=== PATIENT | female | born 1940 | race Hispanic/Latino ===

== ENCOUNTER 2017-04-09 08:10 | Inpatient (IN) | payer MEDICARE ==
[2017-04-09 08:10] VITALS: BMI 30.7
[2017-04-09] MEDS ORDERED: Morphine 4 mg/ml ISec IVP STA (08:25)
[2017-04-09] MEDS ORDERED: Nitroglycerin 2% Ointment Foilpak UD TOP STA (08:38)
[2017-04-09] MEDS ORDERED: Metoprolol 1 mg/ml Inj IVP STA (08:47)
--- NOTE | 2017-04-09 08:49 | ED PDOC ---
Arrival/HPI - General Chief Complaint: Chest Pain Time Seen by Provider: 04/09/17 08:24 Historian: Patient - History of Present Illness Narrative History of Present Illness (Text): 04/09/17 08:25 A 77 year old female, whose past medical history includes bypass surgery and CHF , presents to the emergency department complaining of left sided chest tightness radiating to the left arm that began at 0600 this morning. Patient notes pain is associated with shortness of breath and nausea but denies any vomiting, abdominal pain, fever, chills, cough, or any other complaints at this time. PMD: Dr. Ronquillo Mobile Home Laborer: Dr. Teague Time/Duration: 1-3 hours Symptom Onset: Sudden Symptom Course: Unchanged Quality: Tightness Activities at Onset: Rest Context: Home Past Medical History - Provider Review Nursing Documentation Reviewed: Yes - Infectious Disease Hx of Infectious Diseases: None - Tetanus Immunization Tetanus Immunization: Unknown - Reproductive Menopause: Yes - Past Medical History Past Medical History: No Previous - Cardiac Hx Congestive Heart Failure: Yes Hx Hypertension: Yes - Pulmonary Hx Respiratory Disorders: No - Neurological Hx Transient Ischemic Attacks (TIA): Yes - HEENT Other/Comment: SITKA, B/L HEARING AIDES - Renal Hx Renal Disorder: No - Endocrine/Metabolic Hx Diabetes Mellitus Type 2: Yes - Hematological/Oncological Hx Shingles: Yes - Integumentary Hx Dermatological Disorder: Yes (SKIN CA LEFT CHEEK, LEFT ARM) - Musculoskeletal/Rheumatological Hx Falls: Yes Hx Unsteady Gait: Yes Other/Comment: USES CANE - Gastrointestinal Hx Gastrointestinal Disorders: Yes (GI ULCER) Hx Gall Bladder Disease: Yes (GB REMOVAL (20+YRS AGO)) - Genitourinary/Gynecological Hx Genitourinary Disorders: Yes (KIDNEY STONE REMOVAL (20+YRS AGO)) - Psychiatric Hx Emotional Abuse: No Hx Physical Abuse: No Hx Substance Use: No - Surgical History Hx Cholecystectomy: Yes - Anesthesia Hx Anesthesia: No Hx Anesthesia Reactions: No Hx Malignant Hyperthermia: No - Suicidal Assessment Feels Threatened In Home Enviroment: No Family/Social History - Physician Review Nursing Documentation Reviewed: Yes Family/Social History: Unknown Family HX Smoking Status: Never Smoked Hx Alcohol Use: No Hx Substance Use: No Hx Substance Use Treatment: No Allergies/Home Meds Allergies/Adverse Reactions: Allergies clopidogrel bisulfate [From Plavix] Allergy (Verified 03/31/16 09:29) RASH Penicillins Allergy (Verified 03/31/16 09:29) RASH zolpidem tartrate [From Ambien] Allergy (Verified 03/31/16 09:29) RASH gabapentin Adverse Reaction (Verified 04/02/16 05:03) ITCHING and rash itching over entire body with erythma Home Medications: Home Meds Medication Instructions Recorded Confirmed diltiaZEM CD [Cardizem CD] 240 mg PO DAILY 10/09/13 04/09/17 Insulin Detemir [Levemir] 22 unit SC HS 02/04/14 01/16/17 Allopurinol [Zyloprim] 300 mg PO DAILY 03/31/16 04/09/17 Aspirin [Ecotrin] 81 mg PO DAILY 03/31/16 04/09/17 Furosemide [Lasix] 40 mg PO DAILY 03/31/16 04/09/17 Metoprolol Tartrate [Lopressor] 50 mg PO BID 03/31/16 04/09/17 Simvastatin [Zocor] 20 mg PO DAILY 03/31/16 04/09/17 metFORMIN [glucOPHAGE] 500 mg PO BID 03/31/16 04/09/17 Famotidine [Pepcid] 1 tab PO DAILY 04/09/17 04/09/17 Metoclopramide [Reglan] 1 tab PO DAILY 04/09/17 04/09/17 Pantoprazole [Protonix EC Tab] 1 tab PO DAILY 04/09/17 04/09/17 Review of Systems - Review of Systems Constitutional: absent: Fevers ENT: absent: Sore Throat Respiratory: SOB. absent: Cough Cardiovascular: Chest Pain (radiating to the left arm) Gastrointestinal: Nausea. absent: Abdominal Pain Genitourinary Female: absent: Hematuria Musculoskeletal: absent: Back Pain, Neck Pain Skin: absent: Rash Neurological: absent: Headache Endocrine: absent: Polyuria Psychiatric: absent: Depression Physical Exam Vital Signs Reviewed: Yes Vital Signs Temp Pulse Resp BP Pulse Ox 04/09/17 11:11 147/80 04/09/17 11:03 129 H 17 147/80 96 04/09/17 09:23 126 H 16 154/71 H 99 04/09/17 08:10 98.1 F 144 H 24 164/86 H 100 Temperature: Afebrile Blood Pressure: Hypertensive Pulse: Tachycardic Respiratory Rate: Normal Appearance: Positive for: Well-Appearing, Non-Toxic, Comfortable Pain Distress: None Mental Status: Positive for: Alert and Oriented X 3 - Systems Exam Head: Present: Atraumatic, Normocephalic Pupils: Present: PERRL Extroacular Muscles: Present: EOMI Conjunctiva: Present: Normal Mouth: Present: Moist Mucous Membranes Neck: Present: Normal Range of Motion Respiratory/Chest: Present: Clear to Auscultation, Good Air Exchange. No: Respiratory Distress, Accessory Muscle Use Cardiovascular: Present: Normal S1, S2, Tachycardic. No: Murmurs Abdomen: Present: Normal Bowel Sounds. No: Tenderness, Distention, Peritoneal Signs Back: Present: Normal Inspection Upper Extremity: Present: Normal Inspection. No: Cyanosis, Edema Lower Extremity: Present: Normal Inspection. No: Edema Neurological: Present: GCS=15, CN II-XII Intact, Speech Normal Skin: Present: Warm, Dry, Normal Color. No: Rashes Psychiatric: Present: Alert, Oriented x 3, Normal Insight, Normal Concentration Medical Decision Making ED Course and Treatment: 04/09/17 08:25 Impression: A 77 year old female with chest pain. Patient PMD is currently at bedside with the patient and patient's lap runner is aware. Differential Diagnosis include but are not limited to: ACS vs. SVT vs. New onset atrial fibrillation Plan: -- EKG -- Chest X-ray -- Labs -- Aspirin, Morphine and Nitrostate SL tab -- Reassess and disposition Prior Visits: Notes and results from previous visits were reviewed. The patient last presented to the emergency department on 01/14/17 for evaluation of left heel pain radiating the the left calf. Progress Notes: EKG: Ordered, reviewed, and independently interpreted the EKG. Rate : 140 BPM Rhythm : Sinus tachycardia Interpretation : ischemic ST depression in the inferior lateral leads EKG shows ?elevation in AVR with depression in II and depressions in v5/v6 consistent with inferolateral ischemia 04/09/17 08:48 Aspirin, morphine, SL nitro and nitro paste ordered. Some improvement of pain. Spoke to lap runner Dr. Teague who reviewed EKG. Agrees that presentation is consistent with ischemia. Recommends 5mg lopressor iv and heparin bolus and drip if stable hgb 04/09/17 08:58 On reevaluation, patient states her chest pain has resolved. 04/09/17 09:23 Hgb resulted and WNL. Patient currently refusing heparin. She is pending trop 04/09/17 09:43 After lopressor, repeat ekg shows irregularly irregular rhythm at 101 bpm. consistent with afib. Ischemic changes improvement after rate control 04/09/17 10:05 Chest X-ray: Creator : Mundo Gibson MD COMPARISON: Comparison chest 11/12/2016 FINDINGS: LUNGS: No focal consolidation. The interstitial markings are slightly increased and coarsened which may in part be due to semi-erect patient positioning however the possibility of mild venous congestion or developing interstitial infiltrates to be excluded with followup radiographs. PLEURA: No significant pleural effusion identified, no pneumothorax apparent. CARDIOVASCULAR: Sternotomy wires again noted. Heart remains enlarged. Aorta is ectatic and uncoiled with calcification of the aortic knob. OSSEOUS STRUCTURES: No significant abnormalities. VISUALIZED UPPER ABDOMEN: Normal. OTHER FINDINGS: None. IMPRESSION: No focal consolidation. The interstitial markings are slightly increased and coarsened which may in part be due to semi-erect patient positioning however the possibility of mild venous congestion or developing interstitial infiltrates to be excluded with followup radiographs. 04/09/17 10:33 Dr. Teague at bedside. Cardizem ordered. Trop not resulted. Patient agrees to heparin now. Heparin bolus and drop started. Dr. Lares and Dr. Teague in agreement. 04/09/17 11:57 Trop resulted and elevated consistent with NSTEMI - Lab Interpretations Lab Results: 04/09/17 08:40 04/09/17 10:30 Lab Results 04/09/17 10:30: Sodium 139, Potassium 4.8, Chloride 102, Carbon Dioxide 27, Anion Gap 15, BUN 14, Creatinine 0.7, Est GFR ( Amer) > 60, Est GFR (Non- Af Amer) > 60, Random Glucose 220 H, Calcium 9.6, Phosphorus 3.3, Magnesium 1.6 L, Total Bilirubin 0.5, AST 21, ALT 28, Alkaline Phosphatase 80, Total Creatine Kinase 43, Troponin I 0.15 H* D, NT-Pro-B Natriuret Pep 1490 H, Total Protein 6.5, Albumin 3.8, Globulin 2.7, Albumin/Globulin Ratio 1.4 04/09/17 08:40: PT 10.6, INR 0.98, APTT 28.5 04/09/17 08:40: WBC 10.6 D, RBC 3.86, Hgb 12.1, Hct 35.6 L, MCV 92.2, MCH 31.3 , MCHC 34.0, RDW 14.4, Plt Count 345, MPV 10.1, Gran % 59.4, Lymph % (Auto) 27.1 , Ballard % (Auto) 7.7 H, Eos % (Auto) 5.1 H, Baso % (Auto) 0.7, Gran # 6.33, Lymph # 2.9, Ballard # 0.8 H, Eos # 0.5, Baso # 0.07 I have reviewed the lab results: Yes - RAD Interpretation Radiology Orders: 04/09/17 08:29 CHEST PORTABLE [RAD] Stat - Medication Orders Current Medication Orders: Allopurinol (Zyloprim) 300 mg PO DAILY [facility] Aspirin (Ecotrin) 81 mg PO DAILY [facility] Diltiazem HCl (Cardizem) 60 mg PO TID [facility] Furosemide (Lasix) 40 mg PO DAILY [facility] Last Admin: 04/09/17 11:11 Dose: 40 mg Heparin Sodium/Sodium Chloride (Heparin 88751 Units/250ml 1/2 Normal Saline) 25 ,000 units in 250 mls @ 10.451 mls/hr IV .[id number] [facility]; 12 UNITS/KG/HR PRN Reason: Protocol Last Admin: 04/09/17 10:58 Dose: 10.451 mls/hr Insulin Detemir (Levemir) 20 unit SC HS [facility] Insulin Human Regular (Humulin R Low) 0 units SC ACHS [facility] PRN Reason: Protocol Magnesium Oxide (Mag-Ox) 400 mg PO BID [facility] Metoprolol Tartrate (Lopressor) 50 mg PO BID [facility] Pantoprazole Sodium (Protonix Inj) 40 mg IVP DAILY [facility] Ticagrelor (Brilinta) 90 mg PO BID [facility] Discontinued Medications Acetaminophen (Tylenol 325mg Tab) 650 mg PO STAT [facility] Stop: 04/09/17 10:50 Last Admin: 04/09/17 11:11 Dose: 650 mg Aspirin (Aspirin Chewable) 324 mg PO STAT STA Stop: 04/09/17 08:26 Last Admin: 04/09/17 08:40 Dose: 324 mg Diltiazem HCl (Cardizem) 60 mg PO STAT STA Stop: 04/09/17 10:19 Last Admin: 04/09/17 10:45 Dose: 60 mg Heparin Sodium (Porcine) (Heparin) 4,400 units 50 units/kg (4400 units) IV STAT [facility] PRN Reason: Protocol Stop: 04/09/17 10:30 Last Admin: 04/09/17 10:50 Dose: 4,400 units Metoprolol Tartrate (Lopressor) 5 mg IVP STAT STA Stop: 04/09/17 08:48 Last Admin: 04/09/17 09:17 Dose: 5 mg Morphine Sulfate (Morphine) 4 mg IVP STAT STA Stop: 04/09/17 08:26 Last Admin: 04/09/17 08:40 Dose: 4 mg Nitroglycerin (Nitrostat Sl Tab) 0.3 mg SL STAT STA Stop: 04/09/17 08:27 Last Admin: 04/09/17 08:40 Dose: 0.3 mg Nitroglycerin (Nitro-Bid 2% Oint) 1 ea TOP STAT STA Stop: 04/09/17 08:39 Last Admin: 04/09/17 08:45 Dose: 1 ea - Scribe Statement The provider has reviewed the documentation as recorded by the Vinnieibnelson Mackenzie Provider Scribe Attestation: All medical record entries made by the Scribe were at my direction and personally dictated by me. I have reviewed the chart and agree that the record accurately reflects my personal performance of the history, physical exam, medical decision making, and the department course for this patient. I have also personally directed, reviewed, and agree with the discharge instructions and disposition. Disposition/Present on Arrival - Present on Arrival Any Indicators Present on Arrival: No History of DVT/PE: No History of Uncontrolled Diabetes: No Urinary Catheter: No History of Decub. Ulcer: No History Surgical Site Infection Following: None - Disposition Have Diagnosis and Disposition been Completed?: Yes Diagnosis: NSTEMI (non-ST elevated myocardial infarction), Chest pain, New onset atrial fibrillation Disposition: HOSPITALIZED Disposition Time: 08:49 Patient Plan: Admission Patient Problems: Current Active Problems Problem Status Onset Chest pain Acute NSTEMI (non-ST elevated myocardial infarction) Acute New onset atrial fibrillation Acute Condition: FAIR
[2017-04-09 08:52] LABS: ADD MANUAL DIFF? NO
[2017-04-09 09:00] LABS: BASO # 0.07 K/mm3 (0.0-2.0); BASO % 0.7 % (0.0-3.0); EOS # 0.5 (0.0-0.7); EOS % 5.1 % (1.5-5.0); GRAN # 6.33 (1.4-6.5); GRAN % 59.4 % (50.0-68.0); HEMATOCRIT 35.6 % (36.0-48.0); LYMPH # 2.9 (1.2-3.4); LYMPH % 27.1 % (22.0-35.0); MEAN CELL VOLUME 92.2 fL (80.0-105.0); MEAN CORPUSCULAR HEMOGLOBIN 31.3 pg (25.0-35.0); MEAN PLATELET VOLUME 10.1 fl (7.0-11.0); MONO # 0.8 (0.1-0.6); MONO % 7.7 % (1.0-6.0); PLATELET COUNT 345 10^3/uL (120.0-450.0); RED CELL DISTRIBUTION WIDTH 14.4 % (11.5-14.5); WHITE BLOOD COUNT 10.6 10^3/ul (4.5-11.0)
[2017-04-09 09:09] LABS: INR 0.98 (0.93-1.08); PARTIAL THROMBOPLASTIN TIME 28.5 Seconds (23.7-30.8)
--- NOTE | 2017-04-09 10:01 | RAD ---
HISTORY: chest pain COMPARISON: Comparison chest 11/12/2016 FINDINGS: LUNGS: No focal consolidation. The interstitial markings are slightly increased and coarsened which may in part be due to semi-erect patient positioning however the possibility of mild venous congestion or developing interstitial infiltrates to be excluded with followup radiographs. PLEURA: No significant pleural effusion identified, no pneumothorax apparent. CARDIOVASCULAR: Sternotomy wires again noted. Heart remains enlarged. Aorta is ectatic and uncoiled with calcification of the aortic knob. OSSEOUS STRUCTURES: No significant abnormalities. VISUALIZED UPPER ABDOMEN: Normal. OTHER FINDINGS: None. IMPRESSION: No focal consolidation. The interstitial markings are slightly increased and coarsened which may in part be due to semi-erect patient positioning however the possibility of mild venous congestion or developing interstitial infiltrates to be excluded with followup radiographs.
[2017-04-09] MEDS ORDERED: Heparin25000 units/250ml 1/2NS 25,000 UNITS/250 ML BAG IV SCH (10:30)
[2017-04-09 10:48] LABS: ALB/GLOB RATIO 1.4 (1.1-1.8); ALKALINE PHOSPHATASE 80 U/L (38-133); ALT/SGPT 28 U/L (7-56); AST/SGOT 21 U/L (15-39); BILIRUBIN,TOTAL 0.5 mg/dL (0.2-1.3); BLOOD UREA NITROGEN 14 mg/dL (7-21); CALCIUM 9.6 mg/dL (8.4-10.5); CARBON DIOXIDE 27 mmol/L (21-33); CHLORIDE 102 mmol/L (98-107); GFR AFRICAN-AMERICAN > 60; GLUCOSE,RANDOM 220 mg/dL (70-110); MAGNESIUM 1.6 mg/dL (1.7-2.2); PHOSPHOROUS 3.3 mg/dL (2.5-4.5); POTASSIUM 4.8 mmol/L (3.6-5.0); SODIUM 139 mmol/L (132-148); TOTAL PROTEIN 6.5 g/dL (5.8-8.3)
[2017-04-09 11:22] LABS: TROPONIN I 0.15 ng/mL
--- NOTE | 2017-04-09 11:44 | HP ---
The patient is seen in the Emergency Room with chest pain. She is a 77-year- old white female. She has a history of coronary artery disease. HISTORY OF PRESENT ILLNESS: The patient is seen in the Emergency Room with chest pain that is radiating to the left arm. The patient's pain is intractable , and she also has anxiety associated with the pain and shortness of breath with palpitations. PAST MEDICAL HISTORY: Diabetes mellitus, degenerative arthritis, lumbar neuritis. The patient has bursitis of both knees, history of renal colic, renal calculi. PAST SURGICAL HISTORY: She has had coronary artery bypass surgery. ALLERGIES: SHE IS ALLERGIC TO PLAVIX. THE PATIENT IS ALLERGIC TO PENICILLIN, ALLERGIC TO AMBIEN AND GABAPENTIN. PHYSICAL EXAMINATION: GENERAL: The patient is in pain. She was given morphine for the pain at the time of evaluation. VITAL SIGNS: The pulse is irregular 140 per minute. Rhythm is atrial fibrillation. The patient's blood pressure is 150/71. Respirations are 16. O2 sat is 99% on room air. HEAD: Normocephalic. NECK: JVP is flat. Carotid pulses are present. Thyroid is not enlarged. HEART: Atrial fibrillation with rapid ventricular response. ABDOMEN: Soft. Liver and spleen not palpable. LUNGS: The trachea is central. Breath sounds are vesicular. No adventitious sounds are heard clinically. CENTRAL NERVOUS SYSTEM: The cranial nerves are intact. She has no motor or sensory disability. 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 She has neuropathic involvement of the hand, as well as the legs. MEDICATION LIST: Consists of Cardizem. The patient is on Cardizem 60 mg p.o. 3 times a day. The patient is on aspirin. The patient will be placed on insulin coverage, metoprolol 50 mg b.i.d. The patient will get pantoprazole 40 mg daily, allopurinol 300 mg daily, aspirin 325 mg daily. The patient is treated with heparin drip and morphine for pain. LABORATORY DATA: The blood work done in the Emergency Room, the hemoglobin is 12.1. The patient's platelet count is 345,000. The patient is also placed on (ticagrelor) Brilinta 90 mg p.o. b.i.d. for anticoagulation as antiplatelet agent because the patient has acute coronary syndrome, rule out IN and she is allergic to Plavix.. ADMITTING DIAGNOSES: Chest pain, rule out acute myocardial infarction, unstable angina, atrial fibrillation with rapid ventricular rate, diabetes mellitus, hypertension, degenerative arthritis. PROGNOSIS: Is guarded. CONDITION: Unstable at this time. The patient is going to be treated in telemetry. Dr. Teague, the dental director, will be called in to see the patient, and we will follow up. Pola Ronquillo MD cc: [id number] TT: 04/09/2017 11:43:42 jn MTDD
[2017-04-09] MEDS: Insulin Reg-LOW-Coverage SC SCH ×2 (13:33→17:30)
--- NOTE | 2017-04-09 14:17 | CON ---
DATE: 04/09/2017 REASON FOR CONSULTATION: Chest pain radiating to the left arm and shoulder, history of coronary daniele ry disease, CABG. BRIEF CLINICAL HISTORY: This is a 77-year-old female with a past medical history significant for cor onary artery bypass surgery 03/15/2009, three vessels - PILLAI to LAD, saphenous venous graft Y to diag onal 1 and circumflex - by Dr. Motta at [facility]. Repeat catheterization in 2015: Patent graft. Came with left-sided chest pain radiating ____, radiating to the left arm. Als o complains of shortness of breath, nausea feeling. Denies any fever or chills. PAST MEDICAL HISTORY: Significant for hypertension, diabetes, hyperlipidemia; coronary artery bypass surgery 03/15/2009, three vessel as mentioned - PILLAI to LAD, saphenous vein graft to the diagonal, s aphenous graft to the circumflex - by Dr. Motta at [facility]; history of COPD. PREVIOUS CARDIAC WORKUP: As follows: The patient had a cardiac catheterization 04/04/2016 that show s patent graft when patient presented with acute dld-AI-qycjedk myocardial infarction, coronary arter y disease. It revealed 2-vessel disease including left main and circumflex, but patent PILLAI to LAD, but distal LAD diffusely diseased, not suitable for PCI; patent Y graft to diagonal 1 and circumflex; mild disease to very large dominant RCA, preserved LV function, ejection fraction 50-60%, EDP was in the range 14-18. Medical treatment recommended. The patient had echocardiography done on 04/02/2016 that revealed ejection fraction 50%, hypokinesis with apical anterior wall, mild to moderate mitral regurgitation, mild tricuspid regurgitation, RV sy stolic pressure at 32, trace pulmonary insufficiency. PAST SURGICAL HISTORY: Significant for coronary artery bypass as mentioned 03/15/2009 at [facility] where the patient underwent PILLAI to LAD, saphenous graft Y to diagonal 1 and circumfl ex. SOCIAL HISTORY: Denies smoking. Denies any history of alcohol abuse. CURRENT MEDICATIONS: The patient is taking at home metformin, Glucophage, Cardizem, simvastatin, met oprolol, insulin, aspirin, allopurinol. ALLERGIES: PENICILLIN, PLAVIX, RASH AND ITCHING WITH THE PLAVIX WITH AMBIEN ____. She gets very confused. REVIEW OF SYSTEMS: As per HPI. PHYSICAL EXAMINATION: VITAL SIGNS: Temperature afebrile, heart rate 126, blood pressure 154/71. HEENT: PERRLA. Extraocular muscles intact. NECK: Supple. No carotid bruits. No thyromegaly. CHEST: Clear to auscultation. HEART: S1, S2 regular. ABDOMEN: Soft. EXTREMITIES: Clubbing and cyanosis negative. BLOOD WORKUP: WBC 10.6, hemoglobin 12.____, hematocrit 35.6, platelet count 356. SMA-7 pending. EK G shows sinus tachycardia with significant ST-T changes. IMPRESSION: Acute coronary syndrome, unstable angina, history of chronic obstructive pulmonary disea se, diabetes, obesity, hypertension, hyperlipidemia. Will start aspirin. Will give the beta amalia . Further recommendation depending on hospital course. Possibly patient may need cardiac catheteriz ation. Discussed it with the patient. Will proceed for cardiac cath when the blood work and all the labs are available. Will follow with you. The patient has allergy to Plavix, gets rash. We will s vaishali Foley. Will follow with you. Possible cath in the a.m. Vega Teague MD cc: [id number] TT: 04/09/2017 11:13:13 Confirmation # [id number] Dictation # [id number] verónica
[2017-04-09] MEDS ORDERED: Insulin Regular 1 UNITS/0.01 ML ML ONE (17:26)
[2017-04-09] MEDS: Magnesium Oxide 400 mg Tab UD PO SCH (17:36)
--- NOTE | 2017-04-09 18:44 | CON ---
DATE: 04/09/2017 ADDENDUM SERVICE: Cardiology. REASON FOR CONSULTATION: Addendum to the initial consult dictated this morning. Initial EKG was sen t to me in the text. Appears sinus tachycardia, looked carefully. The heart looks like AFib, flutter with heart rate 140. 5 mg of IV Lopressor given. The patient clearly shows atrial flutter w ith variable block, so we will continue heparin, but significant ST-T changes noted. As of now, the blood work is not available, so we will wait for the troponin and if the troponin remains positive, then we will consider cardiac catheterization. Discussed with Dr. Ronquillo. Discussed with the nicole cervantes. Discussed with patient's daughter. We will keep n.p.o. after 12:00 midnight for possible car diac catheterization tomorrow. Further recommendation upon the blood workup availability and hospita l course. Thank you, Dr. Ronquillo, for providing the opportunity in taking care of this patient. Vega Teague MD cc: [id number] TT: 04/09/2017 18:43:56 Confirmation # [id number] Dictation # [id number] emmanuel
[2017-04-09] MEDS ORDERED: Alum-Mag Hydrox-Simethicone Susp (30 mL) PO PRN (20:38)
[2017-04-09 20:49] LABS: TROPONIN I 1.1 ng/mL
[2017-04-09] MEDS: Insulin Detemir 100 units/ml Vial (Levemir) SC SCH (22:05)
--- NOTE | 2017-04-09 22:23 | CARD ---
APPROVED REPORT EKG Measurement Heart [id number] <Conclusion> Atrial flutter with variable conduction and rapid ventricular response ST & T wave abnormality, consider lateral ischemia or digitalis effect Abnormal ECG
--- NOTE | 2017-04-09 22:25 | CARD ---
APPROVED REPORT EKG Measurement Heart [id number] <Conclusion> Atrial flutter with variable conduction and with rapid ventricular response ST & T wave abnormality, consider lateral ischemia or digitalis effect Abnormal ECG
--- NOTE | 2017-04-09 22:27 | CARD ---
APPROVED REPORT EKG Measurement Heart [id number] [id number] <Conclusion> ? Sinus tachycardia Marked ST abnormality, possible inferolateral subendocardial injury Abnormal ECG
--- NOTE | 2017-04-09 22:29 | CARD ---
APPROVED REPORT EKG Measurement Heart [id number] <Conclusion> Sinus tachycardia Marked ST abnormality, possible inferolateral subendocardial injury Abnormal ECG
[2017-04-09] MEDS ORDERED: Oxycodone/Acetaminophen 5/325 mg Tab PO ONE (23:40)
[2017-04-10] MEDS: Insulin Reg-LOW-Coverage SC SCH ×5 (00:11→22:00)
[2017-04-10] MEDS ORDERED: Metoprolol 1 mg/ml Inj IVP STA (00:43)
[2017-04-10] MEDS ORDERED: Nitroglycerin 2% Ointment Foilpak UD TOP STA ×2 (01:20)
--- NOTE | 2017-04-10 01:27 | CP.PCM.PN ---
Subjective - Date & Time of Evaluation Date of Evaluation: 04/10/17 Time of Evaluation: 01:21 - Subjective Subjective: I was called to inform me that heart rate was in 130's -140's when lopressor 5 mg IV was ordered. Little after that I was told that patient had heaviness in chest, nausea. He has NSTEMI and is for cardiac catheterization in the morning. An EKG and troponin level as well as BMP, Mag,PHOS were ordered. I evaluated patient at bed side.Heart rate on monitor now is 108/min , after lopressor 5 mg IV. He states that he had heaviness in across upper chest , not anymore.It lasted for about 20 minutes. Has no other complaints now. This 77 year old white male was admitted left sided chest pain radiating to left arm , nausea, sob , NSTEMI. Has PMH of HTN,DM, HLD, ACS,Unstable angina, COPD, Obesity. EKG that was done now shows sinus tachycardia, PACs', ST- T changes similar to previous EKG. Objective - Vital Signs/Intake and Output Vital Signs (last 24 hours): Temp Pulse Resp BP Pulse Ox 98.2 F 139 H 19 138/84 100 04/09/17 20:00 04/10/17 00:51 04/09/17 20:00 04/10/17 00:51 04/09/17 17:14 - Medications Medications: Current Medications Acetaminophen (Tylenol 325mg Tab) 650 mg PO Q6H PRN PRN Reason: Pain, moderate (4-7) Last Admin: 04/09/17 21:38 Dose: 650 mg Al Hydrox/Mg Hydrox/Simethicone (Maalox Plus 30 Ml) 30 ml PO Q6 PRN PRN Reason: Indigestion / Heartburn Last Admin: 04/09/17 21:13 Dose: 30 ml Allopurinol (Zyloprim) 300 mg PO DAILY [facility] Aspirin (Ecotrin) 81 mg PO DAILY [facility] Diltiazem HCl (Cardizem) 60 mg PO TID [facility] Last Admin: 04/09/17 17:31 Dose: 60 mg Furosemide (Lasix) 40 mg PO DAILY [facility] Last Admin: 04/09/17 11:11 Dose: 40 mg Insulin Detemir (Levemir) 20 unit SC [facility] Last Admin: 04/09/17 22:05 Dose: 20 unit Insulin Human Regular (Humulin R Low) 0 units SC ACHS KASIA PRN Reason: Protocol Last Admin: 04/10/17 00:11 Dose: Not Given Magnesium Oxide (Mag-Ox) 400 mg PO BID [facility] Last Admin: 04/09/17 17:36 Dose: 400 mg Metoprolol Tartrate (Lopressor) 50 mg PO BID [facility] Last Admin: 04/09/17 17:31 Dose: 50 mg Nitroglycerin (Nitro-Bid 2% Oint) 1 ea TOP STAT STA Stop: 04/10/17 01:21 Ondansetron HCl (Zofran Inj) 4 mg IVP Q4H PRN PRN Reason: Nausea/Vomiting Last Admin: 04/10/17 01:04 Dose: 4 mg Pantoprazole Sodium (Protonix Inj) 40 mg IVP DAILY [facility] Ticagrelor (Brilinta) 90 mg PO BID [facility] Last Admin: 04/09/17 17:31 Dose: 90 mg - Labs Labs: PT 10.6 Seconds (9.9-11.8) 04/09/17 08:40 INR 0.98 (0.93-1.08) 04/09/17 08:40 APTT 33.5 Seconds (23.7-30.8) H 04/09/17 20:18 - Constitutional Appears: Well, No Acute Distress - Head Exam Head Exam: ATRAUMATIC, NORMAL INSPECTION, NORMOCEPHALIC - Eye Exam Eye Exam: Normal appearance - ENT Exam ENT Exam: Normal External Ear Exam - Neck Exam Neck Exam: Normal Inspection - Respiratory Exam Respiratory Exam: Clear to Ausculation Bilateral, NORMAL BREATHING PATTERN. absent: Rales, Wheezes, Respiratory Distress, Stridor - Cardiovascular Exam Cardiovascular Exam: Tachycardia, REGULAR RHYTHM. absent: JVD Additional comments: Chest wall surgical scar of CABG present. - GI/Abdominal Exam GI & Abdominal Exam: absent: Distended - Rectal Exam Rectal Exam: Deferred - Extremities Exam Extremities Exam: Normal Inspection - Back Exam Back Exam: NORMAL INSPECTION - Neurological Exam Neurological Exam: Alert, Oriented x3 - Psychiatric Exam Psychiatric exam: Normal Affect, Normal Mood - Skin Skin Exam: Normal Color Assessment and Plan - Assessment and Plan (Free Text) Assessment: Sinus tachycardia. Heaviness in chest . Nausea. NSTEM for cardiac cath in AM. HTN. DM. CAD. HLD. COPD. Plan: Lopressor 5 mg IV was given. EKG. Troponin. BMP, Magnesium, phosphorus level stat. Nitropaste 1 " topically stat. Will discuss with Dr.Asif MCCARTY.
[2017-04-10 01:33] LABS: BLOOD UREA NITROGEN 18 mg/dL (7-21); CALCIUM 9.6 mg/dL (8.4-10.5); CARBON DIOXIDE 29 mmol/L (21-33); CHLORIDE 99 mmol/L (98-107); GFR AFRICAN-AMERICAN > 60; GLUCOSE,RANDOM 211 mg/dL (70-110); MAGNESIUM 1.8 mg/dL (1.7-2.2); POTASSIUM 4.4 mmol/L (3.6-5.0); SODIUM 137 mmol/L (132-148)
[2017-04-10 01:47] LABS: TROPONIN I 0.65 ng/mL
--- NOTE | 2017-04-10 07:23 | PN ---
DATE: 04/10/2017 The patient is in the [facility] in [place]. She is in room 269, bed 2. The patient's condition: She was admitted with chest pain yesterday which was extreme, looked like severe unstable angina while she was in the Emergency Room; however, the question of rule out [place] was considered. Today, the patient is not complaining of chest pain as much, but she has nausea. She has weakness and insomnia. PHYSICAL EXAMINATION: VITAL SIGNS: Today, the pulse is 76, blood pressure 162/67, patient's respirations are 20, temperature 98.4. LUNGS: Clinically clear. HEART: Sinus rhythm. The patient was in atrial fibrillation yesterday. The patient's rhythm was sinus prior to the patient's episode while in the Emergency Room yesterday and the rate was very rapid. The patient was treated there for atrial fibrillation. There are no murmurs. ABDOMEN: Soft, obesity present. CENTRAL NERVOUS SYSTEM: The patient is conscious, rational, oriented. She has some difficulty hearing also. LABORATORY WORK: Done in the hospital yesterday, the hemoglobin 12.1. The patient's chemistry: The troponin level was 0.15, 1.1 and 0.65. The patient's blood sugar was 211. The patient's liver enzymes, SGOT are within normal limits. Lactate dehydrogenase 427 and the patient's EKG shows ischemic changes. Chest x-ray is clinically clear. On the patient's evaluation by the cardiologists, the patient is scheduled for possible cardiac cath and further management. Her overall condition is guarded. The condition currently is acute. MEDICATION LIST: The patient is on Brilinta 90 mg b.i.d. The patient is on Cardizem 60 mg 3 times a day, aspirin 81 mg daily, insulin coverage for diabetes , Lasix 40 mg daily. The patient is on metoprolol 50 mg b.i.d., Maalox for agitation and heartburn. The patient is on magnesium oxide, pantoprazole, Zofran for nausea, and allopurinol for gout. Diet is heart healthy diet. We will follow up. Pola Ronquillo MD cc: [phone] TT: 04/10/2017 07:22:50 Confirmation # [id number] Dictation # [id number] tn MTDD
[2017-04-10] MEDS ORDERED: Lidocaine 2% Inj (20ml) ONE (08:04)
[2017-04-10] MEDS ORDERED: Iodixanol 320 MG/ML 200 ML BOTTLE IV ONE (08:05)
[2017-04-10] MEDS ORDERED: Nitroglycerin 50mg in D5W 50 MG/250 ML BOTTLE IV ONE (08:05)
[2017-04-10] MEDS ORDERED: Midazolam 2 MG/2 ML VIAL ONE (08:39)
[2017-04-10] MEDS ORDERED: Eptifibatide 20 mg/10mL Inj IVP ONE (09:54)
[2017-04-10] MEDS ORDERED: Sodium Chloride 0.9% 1,000 ML IV SCH (10:45)
[2017-04-10] MEDS: Magnesium Oxide 400 mg Tab UD PO SCH ×2 (11:47→17:52)
--- NOTE | 2017-04-10 11:56 | PN ---
DATE: 04/10/2017 REASON FOR CONSULTATION AND FOLLOWUP: Chest pain radiating to the left arm, acute coronary syndrome, unstable angina, history of coronary artery disease, CABG, status post PTCA of proximal RCA, heavily calcified artery. BRIEF CLINICAL HISTORY: A 77-year-old female with a past medical history significant for coronary ar emy bypass 03/15/2009, 3 vessels, PILLAI to LAD, saphenous graft Y to diagonal [address] Motta at [facility] Repeat catheterization 03/2016, medical treatment, patent gra ft. Yesterday, admitted with unstable angina, severe chest pain, goes from right to left. Later on, troponin turns out to be positive . EKG showed significant ST depression in inferolateral lead s. The patient underwent this morning cardiac catheterization and that revealed left main 99% stenos is, proximal LAD 90% stenosis, mid LAD 100% stenosis, proximal circ 100% occluded, RCA proximal 90% s tenosis, heavily calcified artery, PILLAI patent to LAD, distal LAD diffusely diseased and occluded, sa phenous vein graft to the diagonal and saphenous graft to the obtuse marginal 1 Y graft. LV gram philly ws ejection fraction 50%, EDP was in the range of 12. In view of above, PTCA of [place] RCA was done. It was very complex. Initial dilatation was done using yuniel wire and 2.5 balloon, then upgraded t o 3.5 balloon and then subsequently 4 mm drug-eluting stent 18 mm in length was deployed with reducti on of stenosis from 90% to 0. ADAMA 3 flow noted and good diastolic noted. The patient tolerat ed the procedure well and returned to the floor in stable condition. PHYSICAL EXAMINATION: VITAL SIGNS: Temperature afebrile, heart rate , blood pressure 162/67. HEENT: PERRLA. Extraocular muscles intact. NECK: Supple. No carotid bruits. No thyromegaly. CHEST: Clear to auscultation. HEART: S1, S2 regular. ABDOMEN: Soft. EXTREMITIES: Clubbing, cyanosis negative. BLOOD WORKUP: WBC 10.6, hemoglobin 12.1, hematocrit 35.6, platelet count 356. Chemistry shows sodiu m , potassium 4.4, chloride 99, carbon dioxide , anion gap of 13, BUN 18, creatinine 0.8. Troponin peaked to 1.1 and today is 0.69. BNP 1490. IMPRESSION: Unstable angina, status post coronary artery bypass surgery in 2008, status post today a ngioplasty of [place] right coronary artery with reduction of stenosis from 90% to 0, diabetes, hypert ension, hyperlipidemia, obesity. RECOMMENDATION: THE PATIENT IS ALLERGIC TO PLAVIX. We started Brilinta 90 mg twice, baby aspirin an d possible discharge tomorrow. We will continue hydrate and further recommendation depending on hosp ital course. We will inform Dr. Ronquillo, update the patient's condition. Vega Teague MD cc: [id number] TT: 04/10/2017 11:56:12 Confirmation # [id number] Dictation # [id number] en
[2017-04-10 13:19] LABS: ADD MANUAL DIFF? NO
[2017-04-10 13:23] LABS: BASO # 0.06 K/mm3 (0.0-2.0); BASO % 0.6 % (0.0-3.0); EOS # 0.4 (0.0-0.7); EOS % 3.9 % (1.5-5.0); GRAN # 5.73 (1.4-6.5); GRAN % 60.1 % (50.0-68.0); HEMATOCRIT 35.2 % (36.0-48.0); LYMPH # 2.7 (1.2-3.4); LYMPH % 28.3 % (22.0-35.0); MEAN CELL VOLUME 92.4 fL (80.0-105.0); MEAN CORPUSCULAR HEMOGLOBIN 31.2 pg (25.0-35.0); MEAN CORPUSCULAR HGB CONC 33.8 g/dl (31.0-37.0); MEAN PLATELET VOLUME 9.4 fl (7.0-11.0); MONO # 0.7 (0.1-0.6); MONO % 7.1 % (1.0-6.0); PLATELET COUNT 357 10^3/uL (120.0-450.0); RED CELL DISTRIBUTION WIDTH 14.4 % (11.5-14.5); WHITE BLOOD COUNT 9.5 10^3/ul (4.5-11.0)
[2017-04-10 13:33] LABS: BLOOD UREA NITROGEN 16 mg/dL (7-21); CALCIUM 9.5 mg/dL (8.4-10.5); CARBON DIOXIDE 28 mmol/L (21-33); CHLORIDE 102 mmol/L (98-107); GFR AFRICAN-AMERICAN > 60; GLUCOSE,RANDOM 206 mg/dL (70-110); POTASSIUM 4.4 mmol/L (3.6-5.0); SODIUM 137 mmol/L (132-148)
[2017-04-10] MEDS ORDERED: Bacitracin 500 Units/gm Oint Foilpak UD ONE (15:30)
[2017-04-10] MEDS ORDERED: Oxycodone/Acetaminophen 5/325 mg Tab PO ONE (16:01)
--- NOTE | 2017-04-10 16:11 | CARD ---
APPROVED REPORT EKG Measurement Heart [id number] <Conclusion> Normal sinus rhythm Nonspecific ST and T wave abnormality Prolonged QT Abnormal ECG
--- NOTE | 2017-04-10 16:21 | CARD ---
APPROVED REPORT EKG Measurement Heart [id number] <Conclusion> Atrial flutter with variable conduction and rapid ventricular response consider lateral ischemia or digitalis effect Abnormal ECG
--- NOTE | 2017-04-10 16:26 | CARD ---
APPROVED REPORT Procedure(s) performed: Left Heart Catheterization PILLAI Angiogram SVG Angiogram PTCA with Stenting of Proximal RCA with MATT HISTORY The patient is a 77 year-old female with a history of : previous NV (> 7 days), previous CHF, peripheral vascular disease, diabetes mellitus with insulin treatment , chronic lung disease, previous diagnostic cath, hypertension , previous CABG (The CABG date was 03/15/2009), dyslipidemia , Adsmitted with unstable Angina ( severe chest pain across chest) A fib with RVR and Dynamic ST T changes. INDICATION The indication(s) include : unstable angina , non-STEMI . CASE TECHNIQUE The patient was brought urgently to the Cardiac Catheterization Laboratory in a fasting state and was prepped and draped in a sterile manner. The left wrist was infiltrated with 2% Lidocaine subcutaneous anesthesia. A 6 Fr Glidesheath (Radial) sheath was inserted into the left radial artery without difficulty. Coronary angiography was performed using coronary diagnostic catheters. The left coronary system was accessed and visualized with a Diagnostic ,5 Fr JL 3.5 catheter. The right coronary system was accessed and visualized with a Diagnostic ,5 Fr 3DRC catheter. The left ventricle was accessed and visualized with a Diagnostic ,5 Fr JR 4 catheter. The left internal mammary artery was accessed and visualized with a 6 Fr LOCO catheter. The saphenous vein graft was accessed and visualized with a Diagnostic ,6 Fr AR 1 catheter. Left ventricular/Aortic Valve gradient assessed on pullback. Left ventriculogram was performed in LYONS projection. Closure device was deployed with a Fr TR Band (Regular) without any complications. The patient tolerated the procedure well and there were no complications associated with the procedure. Vessel Analysis The patient's coronary anatomy is right dominant. The left main coronary artery is a medium size vessel with diffuse calcification noted throughout this vessel and with significant stenosis. There is a 99% stenosis in the distal segment. The left anterior descending artery is a medium size vessel with diffuse calcification noted throughout this vessel and without significant stenosis. There is a 100% stenosis in the mid segment. proximal LAD has 90% stenosis. The first diagonal branch is a small size vessel with diffuse calcification noted throughout this vessel and without significant stenosis. The circumflex artery is a medium size vessel with diffuse calcification noted throughout this vessel and with significant stenosis. There is a 100% stenosis in the ostial segment. The right coronary artery is a large size vessel with diffuse calcification noted throughout this vessel and with significant stenosis. There is a 80-90% stenosis in the proximal segment. The right posterior descending artery is a medium size vessel with diffuse calcification noted throughout this vessel and without significant stenosis. The right posterolateral branch is a medium size vessel with diffuse calcification noted throughout this vessel and without significant stenosis. The left internal mammary artery to the mid left anterior descending artery segment is patent but Distal LAD is severely Diseased, not Suitable for PCI. The saphenous vein graft to the first diagonal branch segment and Sequential to first obtuse marginal branch segment is patent, Y graft. . Left Ventricle The left ventricle is borderline enlarged in size with normal contractility. There was no cardiomyopathy. The left ventricular ejection fraction is estimated to be 55%. The left ventricular end diastolic pressure is 12-14 mmHg. There was no gradient across the aortic valve upon pullback. PCI Technique Lesion Anticoagulation was achieved with Heparin. Percutaneous coronary intervention was performed on the proximal right coronary artery. The lesion stenosis prior to intervention was 80-90% with ADAMA 2 flow. A 6 Fr 3DRC Guide Catheter was used to engage the ostium. BALLOON DILATION A Balloon catheter 2.5 x 10 mm Sprinter RX was inserted and inflated up to 18.00atm for 34seconds. Up sized to 3.5.10 balloon and Inflatted to 12 atms for 20 seconds STENT DEPLOYMENT A drug-eluting stent 4.0 x 18 mm Resolute MATT was inserted and inflated up to 18.00atm for 21seconds. Final angiography reveals 0 % stenosis with ADAMA 3 flow. Conclusion [place] Triple Vessel Diz, Left Main, LAD, Cx,and RCA. Patent PILLAI to LAD but LAD Is Diffusely Diz. not suitable for PCI. Patent Y graft to OM1 and D1 New High grade Stenosis In Proximal RCA, culprit for Symptoms Preserved LV Fx., EF-55%. EDP-12-14 with respiratory variation Successful PTCA with MATT in Proximal RCA 4.0/18 Resolute. Recommendations Cardiac Rehabilitation ReferralDaily ASA with Plavix for at least one year Aggressive Medical TherapyCardiac Risk Reduction Program Weight Loss Reduction Program CC DR. Lares/ [place].
[2017-04-10] MEDS ORDERED: Oxycodone/Acetaminophen 5/325 mg Tab PO PRN (17:12)
[2017-04-10 18:41] VITALS: RESP 20
[2017-04-10] MEDS: Insulin Detemir 100 units/ml Vial (Levemir) SC SCH (21:51)
[2017-04-11 00:07] VITALS: O2SAT 96
[2017-04-11 06:55] LABS: ADD MANUAL DIFF? NO
[2017-04-11 07:21] LABS: BASO # 0.03 K/mm3 (0.0-2.0); BASO % 0.2 % (0.0-3.0); EOS # 0.7 (0.0-0.7); EOS % 5.4 % (1.5-5.0); GRAN # 8.47 (1.4-6.5); GRAN % 68.8 % (50.0-68.0); HEMATOCRIT 36.9 % (36.0-48.0); LYMPH # 2.5 (1.2-3.4); LYMPH % 20.2 % (22.0-35.0); MEAN CELL VOLUME 93.7 fL (80.0-105.0); MEAN CORPUSCULAR HEMOGLOBIN 31.2 pg (25.0-35.0); MEAN CORPUSCULAR HGB CONC 33.3 g/dl (31.0-37.0); MEAN PLATELET VOLUME 9.8 fl (7.0-11.0); MONO # 0.7 (0.1-0.6); MONO % 5.4 % (1.0-6.0); PLATELET COUNT 409 10^3/uL (120.0-450.0); RED CELL DISTRIBUTION WIDTH 14.6 % (11.5-14.5); WHITE BLOOD COUNT 12.3 10^3/ul (4.5-11.0)
[2017-04-11 07:28] LABS: ALB/GLOB RATIO 1.2 (1.1-1.8); ALKALINE PHOSPHATASE 79 U/L (38-133); ALT/SGPT 23 U/L (7-56); AST/SGOT 41 U/L (15-39); BILIRUBIN,TOTAL 0.8 mg/dL (0.2-1.3); BLOOD UREA NITROGEN 16 mg/dL (7-21); CALCIUM 9.3 mg/dL (8.4-10.5); CARBON DIOXIDE 26 mmol/L (21-33); CHLORIDE 102 mmol/L (98-107); CHOLESTEROL 167 mg/dL (130-200); GFR AFRICAN-AMERICAN > 60; GLUCOSE,RANDOM 162 mg/dL (70-110); MAGNESIUM 2.2 mg/dL (1.7-2.2); PHOSPHOROUS 3.8 mg/dL (2.5-4.5); POTASSIUM 4.4 mmol/L (3.6-5.0); SODIUM 139 mmol/L (132-148); TOTAL PROTEIN 6.9 g/dL (5.8-8.3)
[2017-04-11] MEDS: Insulin Reg-LOW-Coverage SC SCH ×2 (08:00→12:11)
--- NOTE | 2017-04-11 08:45 | PN ---
DATE: 04/11/2017 The patient is in the [facility] in [place], room 273, bed 2 at this time. The patient was admitted with unstable angina. The patient has past history of coronary artery disease, diabetes mellitus, hypertension. PHYSICAL EXAMINATION: VITAL SIGNS: This morning, patient's pulse is 70, blood pressure 164/57, respirations are 20. GENERAL: The patient is comfortable. CVS: +S1, S2 LUNGS: clear ABD: soft, NTND, obese ALLERGIES: SHE HAD ALLERGIC REACTION TO BRILINTA. THE PATIENT HAS HAD ALLERGIC REACTION TO PLAVIX IN THE PAST. The patient did have angioplasty yesterday. She is scheduled to be discharged this morning. Dr. Teague, the window/distribution clerk, has recommended the patient will get Effient 10 mg as a starting dose this morning and if the patient tolerates that medicine, the patient will be discharged on it. All the medications will be continued at home. The patient is on hydralazine p.r.n. for elevated blood pressure, but patient takes Cardizem 240 mg daily at home. The patient will take aspirin 81 mg daily. The patient is on insulin coverage for diabetes. The patient is on Lasix 40 mg daily, metoprolol 50 mg b.i.d. The patient is on magnesium oxide. The patient takes pantoprazole 40 mg daily for reflux esophagitis. The patient is on Percocet for pain. She has severe osteoarthritis too. DISCHARGE DIAGNOSES: Unstable angina, status post angioplasty and stenting. The patient has diabetes mellitus, hypertension, degenerative arthritis. The patient's medications will be continued as an outpatient. She is advised that she has to take an anticoagulation, antiplatelet agent such as Effient, Plavix or Brilinta, but at this point, she has to settle for Effient because she is allergic to Plavix and Brillinta. We will continue this management and patient will follow up with the window/distribution clerk after discharge. She will followup in the office in 1 week. Pola Ronquillo MD cc: [phone] TT: 04/11/2017 08:45:05 Confirmation # [id number] Dictation # [id number] en MTDD
[2017-04-11] MEDS: Magnesium Oxide 400 mg Tab UD PO SCH (09:00)
[2017-04-11] MEDS ORDERED: diltiaZEM 240 mg/24 Hours CD Cap PO SCH (10:00)
--- NOTE | 2017-04-11 10:37 | PN ---
DATE: 04/11/2017 REASON FOR CONSULTATION AND FOLLOWUP: Acute coronary syndrome, unstable angina, status post PTCA of RCA. BRIEF CLINICAL HISTORY: A 77-year-old female with a past medical history significant for coronary ar emy bypass surgery 03/15/2009, 3 vessels, PILLAI to LAD, saphenous vein graft Y to diagonal [address] Motta at [facility], admitted with acute coronary syndrome, unstable a ngina and dynamic ST-T changes. The patient underwent a cardiac catheterization and subsequently PTC A of proximal RCA with a drug-eluting stent. The patient is known ALLERGY TO PLAVIX, yesterday start ed Brilinta, but the patient developed rash. So Brilinta is discontinued today and started on Effien t this morning. PHYSICAL EXAMINATION: VITAL SIGNS: Temperature afebrile, heart rate 70, blood pressure 164/64. HEENT: PERRLA. Extraocular muscles intact. NECK: Supple. No carotid bruits. No thyromegaly. CHEST: Clear to auscultation. HEART: S1, S2 regular. ABDOMEN: Soft. EXTREMITIES: Clubbing and cyanosis negative. LABORATORY DATA: Blood workup as follows: WBC 12.3, hemoglobin 12.3, hematocrit 36.9, platelet coun t 409. Chemistry shows sodium ____, potassium 4.4, chloride 102, carbon dioxide 26, anion gap of 15, BUN 16, creatinine 0.8. Triglyceride 322, cholesterol 116, LDL 89, HDL 26. TSH 0.66. IMPRESSION: Acute coronary syndrome and [id number] myocardial infarction, status post percutaneo us transluminal coronary angioplasty of [place] right coronary artery with a drug-eluting stent, sanchez nt left internal mammary artery to left anterior descending, patent graft, saphenous vein graft Y gra ft to diagonal 1 and circumflex; obesity, diabetes, hypertension, hyperlipidemia, ALLERGY TO PLAVIX, ALLERGY TO BRILINTA. RECOMMENDATION: We will start Effient, ambulate. If patient remains stable, possible discharge to y. ____ discuss with Dr. Ronquillo. Thank you, Dr. Ronquillo, for providing the opportunity in taking care of the patient. We will foll ow with you. The patient on admission went into A-fib with rapid ventricular rate. Post-procedure, the patient converted to normal sinus. We will not anticoagulate because it was short lived and the patient converted to normal sinus, possibly secondary to ischemia in RCA area and AV bib branches. Now, the patient is back to normal sinus rhythm. Denies any chest pain, shortness of breath, any pa lpitation. We will follow with you. Vega Teague MD cc: [id number] TT: 04/11/2017 10:37:15 Confirmation # [id number] Dictation # [id number] tn
[2017-04-11 12:06] VITALS: BP 155/60; PULSE 82; TEMP 97.7
--- NOTE | 2017-04-11 18:53 | CARD ---
APPROVED REPORT EKG Measurement Heart [id number] <Conclusion> Normal sinus rhythm Left ventricular hypertrophy with repolarization abnormality Cannot rule out Septal infarct, age undetermined Abnormal ECG
== END 2017-04-11 14:44 | disposition home or self-care (01) | DRG 247 ==
LOC: ED 08:10 → ERH 10:31 → 2RNO 19:39 → 2RSO 04-10 11:00
PROVIDERS: ADMIT Internal Medicine; ATTEND Internal Medicine
PROC: 027034Z Dilation of Coronary Artery, One Artery with Drug-eluting Intraluminal Device, Percutaneous Approach (ICD-10-PCS; principal; 2017-04-10)
PROC: 4A023N7 Measurement of Cardiac Sampling and Pressure, Left Heart, Percutaneous Approach (ICD-10-PCS; 2017-04-10)
PROC: B2081ZZ Plain Radiography of Left Internal Mammary Bypass Graft using Low Osmolar Contrast (ICD-10-PCS; 2017-04-10)
PROC: 3E033PZ Introduction of Platelet Inhibitor into Peripheral Vein, Percutaneous Approach (ICD-10-PCS; 2017-04-10)
DX: I21.4 Non-ST elevation (NSTEMI) myocardial infarction (principal); I48.92 Unspecified atrial flutter; E11.42 Type 2 diabetes mellitus with diabetic polyneuropathy; I11.0 Hypertensive heart disease with heart failure; I50.9 Heart failure, unspecified; I08.1 Rheumatic disorders of both mitral and tricuspid valves; J44.9 Chronic obstructive pulmonary disease, unspecified; I25.110 Atherosclerotic heart disease of native coronary artery with unstable angina pectoris; Z79.4 Long term (current) use of insulin; M54.16 Radiculopathy, lumbar region; M71.562 Other bursitis, not elsewhere classified, left knee; M71.561 Other bursitis, not elsewhere classified, right knee; E78.5 Hyperlipidemia, unspecified; J98.4 Other disorders of lung; M19.90 Unspecified osteoarthritis, unspecified site; I48.91 Unspecified atrial fibrillation; I73.9 Peripheral vascular disease, unspecified; E66.9 Obesity, unspecified; Z68.31 Body mass index [BMI] 31.0-31.9, adult; Z95.1 Presence of aortocoronary bypass graft; Z79.82 Long term (current) use of aspirin; Z88.0 Allergy status to penicillin

== ENCOUNTER 2017-04-24 09:49 | Emergency (ER) | payer MEDICARE ==
[2017-04-24 09:50] VITALS: BMI 30.7
[2017-04-24 09:57] VITALS: TEMP 98.6; O2SAT 96
--- NOTE | 2017-04-24 10:20 | ED PDOC ---
Arrival/HPI - General Chief Complaint: Lower Extremity Problem/Injury Time Seen by Provider: 04/24/17 10:14 Historian: Patient - History of Present Illness Narrative History of Present Illness (Text): 04/24/17 10:17 77yo female with PMHx of CAD, hypertension, Diabetes, neuropathy, gout who present with complaint of left foot pain x a week. States pain is usually with weight bearing. He notes that pain radiates from her plantar foot through the Achilles's tendon up to her calf area. States she took Percocet this morning without relieve. Also notes paresthesia of her anterior foot. Notes that she is on Allopurinol for her gout x years. Denies trauma, any other complaint. Past Medical History - Provider Review Nursing Documentation Reviewed: Yes - Infectious Disease Hx of Infectious Diseases: None - Tetanus Immunization Tetanus Immunization: Unknown - Past Medical History Past Medical History: No Previous - Cardiac Hx Cardiac Disorders: Yes Hx Congestive Heart Failure: Yes Hx Hypertension: Yes - Pulmonary Hx Respiratory Disorders: No - Neurological Hx Neurological Disorder: Yes Hx Transient Ischemic Attacks (TIA): Yes - HEENT Hx HEENT Disorder: No - Renal Hx Renal Disorder: No - Endocrine/Metabolic Hx Endocrine Disorders: Yes Hx Diabetes Mellitus Type 2: Yes Hx Hyperthyroidism: Yes - Hematological/Oncological Hx Blood Disorders: No - Integumentary Hx Dermatological Disorder: Yes Hx Basal Cell Carcinoma: Yes (ca) Hx Squamous Cell Carcinoma: Yes (ca) - Musculoskeletal/Rheumatological Hx Musculoskeletal Disorders: Yes Hx Arthritis: Yes Hx Falls: Yes Hx Unsteady Gait: Yes (cane) - Gastrointestinal Hx Gastrointestinal Disorders: Yes Hx Gall Bladder Disease: Yes Hx Gastrointestinal Ulcer: Yes - Genitourinary/Gynecological Hx Genitourinary Disorders: No - Psychiatric Hx Psychophysiologic Disorder: No Hx Substance Use: No - Surgical History Hx Amputation: Yes (partial BL index finger) Hx Cardiac Catheterization: Yes Hx Hysterectomy: Yes - Anesthesia Hx Anesthesia: Yes - Suicidal Assessment Feels Threatened In Home Enviroment: No Family/Social History - Physician Review Nursing Documentation Reviewed: Yes Family/Social History: Unknown Family HX Smoking Status: Never Smoked Hx Alcohol Use: No Hx Substance Use: No Hx Substance Use Treatment: No Allergies/Home Meds Allergies/Adverse Reactions: Allergies clopidogrel bisulfate [From Plavix] Allergy (Verified 04/24/17 09:52) RASH Penicillins Allergy (Verified 04/24/17 09:52) RASH zolpidem tartrate [From Ambien] Allergy (Verified 04/24/17 09:52) RASH gabapentin Adverse Reaction (Verified 04/24/17 09:52) ITCHING and rash itching over entire body with erythma Home Medications: Home Meds Medication Instructions Recorded Confirmed diltiaZEM CD [Cardizem CD] 240 mg PO DAILY 10/09/13 04/24/17 Insulin Detemir [Levemir] 22 unit SC HS 02/04/14 04/24/17 Allopurinol [Zyloprim] 300 mg PO DAILY 03/31/16 04/24/17 Aspirin [Ecotrin] 81 mg PO DAILY 03/31/16 04/24/17 Furosemide [Lasix] 40 mg PO DAILY 03/31/16 04/24/17 Metoprolol Tartrate [Lopressor] 50 mg PO BID 03/31/16 04/24/17 Simvastatin [Zocor] 20 mg PO DAILY 03/31/16 04/24/17 metFORMIN [glucOPHAGE] 500 mg PO BID 03/31/16 04/24/17 Famotidine [Pepcid] 1 tab PO DAILY 04/09/17 04/24/17 Pantoprazole [Protonix EC Tab] 1 tab PO DAILY 04/09/17 04/24/17 Review of Systems - Physician Review All systems were reviewed & negative as marked: Yes - Review of Systems Constitutional: Normal Eyes: Normal ENT: Normal Respiratory: Normal Cardiovascular: Normal Gastrointestinal: Normal Genitourinary Female: Normal Musculoskeletal: Arthralgias (Left foot pain) Skin: Normal Neurological: Normal Endocrine: Normal Hemo/Lymphatic: Normal Psychiatric: Normal Physical Exam Vital Signs Reviewed: Yes Vital Signs Temp Pulse Resp BP Pulse Ox 04/24/17 11:50 69 18 155/42 H 96 04/24/17 09:53 98.6 F 66 16 167/70 H 96 Temperature: Afebrile Blood Pressure: Normal Pulse: Regular Respiratory Rate: Normal Appearance: Positive for: Well-Appearing, Non-Toxic, Comfortable Pain Distress: None Mental Status: Positive for: Alert and Oriented X 3 - Systems Exam Head: Present: Atraumatic, Normocephalic Pupils: Present: PERRL Extroacular Muscles: Present: EOMI Conjunctiva: Present: Normal Mouth: Present: Moist Mucous Membranes Neck: Present: Normal Range of Motion Respiratory/Chest: Present: Clear to Auscultation, Good Air Exchange. No: Respiratory Distress, Accessory Muscle Use Cardiovascular: Present: Regular Rate and Rhythm, Normal S1, S2. No: Murmurs Abdomen: Present: Normal Bowel Sounds. No: Tenderness, Distention, Peritoneal Signs Back: Present: Normal Inspection Upper Extremity: Present: Normal Inspection. No: Cyanosis, Edema Lower Extremity: Present: Normal Inspection, NORMAL PULSES, Normal ROM, Neurovascularly Intact (Decreased sensaton to b/ ankle/anterior foot). No: Edema, CALF TENDERNESS, Tenderness, Swelling, Erythema, Temperature Abnormalties (Warm to touch) Neurological: Present: GCS=15, CN II-XII Intact, Speech Normal Skin: Present: Warm, Dry, Normal Color. No: Rashes Psychiatric: Present: Alert, Oriented x 3, Normal Insight, Normal Concentration Medical Decision Making ED Course and Treatment: 04/24/17 12:01 PT in ED for left foot pain. She notes pain with weight bearing and ambulation. Her physical exam was bening. Her symptoms most likely secondary to Plantar fasciitis Review of her charts indicates that she was seen here on 01/14/17 for same complaint. Foot xray - Spurring. DJd. No acute fracture Doppler US was negative for DVT. URic acid level is WNL. PT is already on Percocet at home. She sees a Lending Activities Supervisor. All result was DW the pt. She was advised to f/u with a Lending Activities Supervisor. She indicates she that she was given a special shoe once by her Lending Activities Supervisor for the same symptom. She was advised to f/u for possible cortisol injection. Advised TRT ED for any new or worsening symptoms. - Lab Interpretations Lab Results: Lab Results 04/24/17 10:30: Uric Acid 3.9 - RAD Interpretation Radiology Orders: 04/24/17 10:15 FOOT LEFT 3 VIEWS ROUTINE [RAD] Stat 04/24/17 10:16 DUPLEX LOWER EXTRM VEIN BILAT [US] Stat - Medication Orders Current Medication Orders: Discontinued Medications Oxycodone/Acetaminophen (Percocet 5/325 Mg Tab) 1 tab PO STAT STA Stop: 04/24/17 10:40 Last Admin: 04/24/17 11:24 Dose: 1 tab Disposition/Present on Arrival - Present on Arrival Any Indicators Present on Arrival: No History of DVT/PE: No History of Uncontrolled Diabetes: Yes Urinary Catheter: No History of Decub. Ulcer: No History Surgical Site Infection Following: None - Disposition Have Diagnosis and Disposition been Completed?: Yes Diagnosis: Plantar fasciitis of left foot Disposition: HOME/ ROUTINE Disposition Time: 11:50 Patient Plan: Discharge Patient Problems: Current Active Problems Problem Status Onset Plantar fasciitis of left foot Acute Condition: STABLE Discharge Instructions (ExitCare): Plantar Fasciitis (ED) Additional Instructions: Follow up with a Lending Activities Supervisor/PMD Return to ED for any new or worsening symptoms Referrals: Reese Ronquillo MD [Primary Care Provider] - Follow up with primary Charlene Jay DPM [Staff Provider] - Follow up with primary
[2017-04-24] MEDS ORDERED: Oxycodone/Acetaminophen 5/325 mg Tab PO STA (10:39)
--- NOTE | 2017-04-24 11:44 | US ---
HISTORY: Leg pain and swelling. Evaluate for DVT PHYSICIAN(S): Charles Cadena MD. TECHNIQUE: Duplex sonography and color-flow Doppler with graded compression were used to evaluate the deep venous systems of both lower extremities. The exam is limited by body habitus and edema FINDINGS: The visualized deep venous systems of both lower extremities are sonographically normal and compressible. Normal wave forms and augmentation are seen. There is no sonographic evidence for deep venous thrombosis in the visualized segments of both lower extremities. There is a complex 4.6 cm fluid collection in the left popliteal fossa. The popliteal vessels are draped over mass. It does not have the typical appearance of a Parra cyst. If further evaluation is necessary, an MRI can be considered. IMPRESSION: No sonographic evidence for deep venous thrombosis in the visualized segments of both lower extremities. 4.6 cm complex left popliteal fossa cystic mass. If further evaluation is clinically indicated, an MRI can be considered.
[2017-04-24 11:50] VITALS: BP 155/42; PULSE 69; RESP 18
--- NOTE | 2017-04-24 12:31 | RAD ---
PROCEDURE: Left Foot Radiographs. HISTORY: foot pain COMPARISON: None. FINDINGS: BONES: Normal. No fracture. JOINTS: Normal. SOFT TISSUES: Normal. OTHER FINDINGS: None. IMPRESSION: Normal left foot radiographs.
== END 2017-04-24 12:16 | disposition home or self-care (01) ==
LOC: ED 09:49
DX: M72.2 Plantar fascial fibromatosis (principal); I10 Essential (primary) hypertension; E11.9 Type 2 diabetes mellitus without complications

== ENCOUNTER 2017-07-25 08:26 | Observation (INO) | payer MEDICARE ==
[2017-07-25 08:26] VITALS: BMI 30.7
[2017-07-25 08:39] VITALS: RESP 16
[2017-07-25] MEDS ORDERED: Morphine 4 mg/ml ISec IM STA ×2 (09:23→11:28)
[2017-07-25 10:13] LABS: BASO # 0.08 K/mm3 (0.0-2.0); BASO % 0.9 % (0.0-3.0); EOS # 0.4 (0.0-0.7); EOS % 4.2 % (1.5-5.0); GRAN # 5.41 (1.4-6.5); GRAN % 58.7 % (50.0-68.0); HEMATOCRIT 33.9 % (36.0-48.0); LYMPH # 2.6 (1.2-3.4); LYMPH % 27.8 % (22.0-35.0); MEAN CELL VOLUME 91.4 fl (80.0-105.0); MEAN CORPUSCULAR HEMOGLOBIN 30.2 pg (25.0-35.0); MEAN PLATELET VOLUME 9.6 fl (7.0-11.0); MONO # 0.8 (0.1-0.6); MONO % 8.4 % (1.0-6.0); RED CELL DISTRIBUTION WIDTH 14.8 % (11.5-14.5); WHITE BLOOD COUNT 9.2 10^3/ul (4.5-11.0)
[2017-07-25 10:19] LABS: ALB/GLOB RATIO 1.4 (1.1-1.8); ALKALINE PHOSPHATASE 92 U/L (38-126); ALT/SGPT 30 U/L (7-56); AST/SGOT 44 U/L (14-36); BILIRUBIN,TOTAL 0.5 mg/dL (0.2-1.3); BLOOD UREA NITROGEN 18 mg/dL (7-21); CALCIUM 9.5 mg/dL (8.4-10.5); CARBON DIOXIDE 27 mmol/L (21-33); CHLORIDE 96 mmol/L (98-107); GFR AFRICAN-AMERICAN > 60; POTASSIUM 4.3 mmol/L (3.6-5.0); SODIUM 138 mmol/L (132-148); TOTAL PROTEIN 7.1 g/dL (5.8-8.3); URIC ACID 4.9 mg/dL (2.5-6.2)
--- NOTE | 2017-07-25 10:24 | ED PDOC ---
Arrival/HPI - General Chief Complaint: Lower Extremity Problem/Injury Time Seen by Provider: 07/25/17 09:08 Historian: Patient - History of Present Illness Narrative History of Present Illness (Text): 07/25/17 10:25 A 77 year old female, whose past medical history includes diabetes and Gout, presents to the emergency department complaining of left foot pain, severe for the past week. Patient was given Novocaine last night by manager grocery, with minimal relief. Patient presented to the emergency department three months ago for similar symptoms. Patient denies any other complaints at this time. PMD: Dr. Walker Surgical Clinical Reviewer: Dr. Gan Medications: Percocet, Gabapentin Symptom Onset: Sudden Symptom Course: Unchanged Activities at Onset: Rest Context: Home Past Medical History - Provider Review Nursing Documentation Reviewed: Yes - Infectious Disease Hx of Infectious Diseases: None - Tetanus Immunization Tetanus Immunization: Unknown - Past Medical History Past Medical History: No Previous - Cardiac Hx Cardiac Disorders: Yes Hx Congestive Heart Failure: Yes Hx Hypertension: Yes - Pulmonary Hx Respiratory Disorders: No - Neurological Hx Neurological Disorder: Yes Hx Transient Ischemic Attacks (TIA): Yes - HEENT Hx HEENT Disorder: No - Renal Hx Renal Disorder: No - Endocrine/Metabolic Hx Endocrine Disorders: Yes Hx Diabetes Mellitus Type 2: Yes Hx Hyperthyroidism: Yes - Hematological/Oncological Hx Blood Disorders: No - Integumentary Hx Dermatological Disorder: Yes Hx Basal Cell Carcinoma: Yes (ca) Hx Squamous Cell Carcinoma: Yes (ca) - Musculoskeletal/Rheumatological Hx Musculoskeletal Disorders: Yes Hx Arthritis: Yes Hx Falls: Yes Hx Unsteady Gait: Yes (cane) - Gastrointestinal Hx Gastrointestinal Disorders: Yes Hx Gall Bladder Disease: Yes Hx Gastrointestinal Ulcer: Yes - Genitourinary/Gynecological Hx Genitourinary Disorders: No - Psychiatric Hx Psychophysiologic Disorder: No Hx Substance Use: No - Surgical History Hx Amputation: Yes (partial BL index finger) Hx Cardiac Catheterization: Yes Hx Hysterectomy: Yes - Anesthesia Hx Anesthesia: Yes - Suicidal Assessment Feels Threatened In Home Enviroment: No Family/Social History - Physician Review Nursing Documentation Reviewed: Yes Family/Social History: No Known Family HX Smoking Status: Never Smoked Hx Alcohol Use: No Hx Substance Use: No Hx Substance Use Treatment: No Allergies/Home Meds Allergies/Adverse Reactions: Allergies clopidogrel bisulfate [From Plavix] Allergy (Verified 07/25/17 08:31) RASH Penicillins Allergy (Verified 07/25/17 08:31) RASH zolpidem tartrate [From Ambien] Allergy (Verified 07/25/17 08:31) RASH gabapentin Adverse Reaction (Verified 07/25/17 08:31) ITCHING and rash itching over entire body with erythma Home Medications: Home Meds Medication Instructions Recorded Confirmed diltiaZEM CD [Cardizem CD] 240 mg PO DAILY 10/09/13 07/25/17 Insulin Detemir [Levemir] 22 unit SC HS 02/04/14 07/25/17 Allopurinol [Zyloprim] 300 mg PO DAILY 03/31/16 07/25/17 Furosemide [Lasix] 40 mg PO BID 03/31/16 07/25/17 Metoprolol Tartrate [Lopressor] 50 mg PO DAILY 03/31/16 07/25/17 Simvastatin [Zocor] 20 mg PO DAILY 03/31/16 07/25/17 metFORMIN [glucOPHAGE] 500 mg PO BID 03/31/16 07/25/17 Pantoprazole [Protonix EC Tab] 1 tab PO DAILY 04/09/17 07/25/17 Gabapentin [Neurontin] 300 mg PO TID 07/25/17 07/25/17 Ticagrelor [Brilinta] 90 mg PO BID 07/25/17 07/25/17 Review of Systems - Physician Review All systems were reviewed & negative as marked: Yes - Review of Systems Constitutional: absent: Fevers Eyes: absent: Vision Changes Musculoskeletal: Other (left foot pain) Neurological: absent: Headache Physical Exam - Physical Exam Narrative Physical Exam (Text): 07/25/17 10:19 Constitutional: No acute distress. Head: Normocephalic. Atraumatic. Eyes: PERRL. ENT: Moist mucous membranes. Neck: Supple. Cardiovascular: Regular rate. Chest: No tenderness. Respiratory: Clear to auscultation bilaterally. GI: Soft. Nontender. Nondistended. Back: No CVA tenderness. Musculoskeletal: DP pulse 2+, full ROM digits, moves ankle, decrease sensation bilateral legs, equally warm to touch Skin: No rash. Neurologic: Alert, no focal deficit. Vital Signs Reviewed: Yes Vital Signs Temp Pulse Resp BP Pulse Ox 07/25/17 13:58 98.0 F 77 16 146/76 95 07/25/17 08:39 98.2 F 76 16 161/114 H 96 Temperature: Afebrile Blood Pressure: Hypertensive Pulse: Regular Respiratory Rate: Normal Appearance: Positive for: Well-Appearing, Non-Toxic, Comfortable Pain Distress: None Mental Status: Positive for: Alert and Oriented X 3 Medical Decision Making ED Course and Treatment: 07/25/17 10:18 Impression: A 77 year old female with left foot pain. Plan: -- xray left ankle -- xray left foot -- labs -- Morphine -- Reassess and disposition Prior Visits: Notes and results from previous visits were reviewed. Patient was last seen in the emergency department on 04/24/17 for evaluation of left foot pain. Progress Notes: 07/25/17 12:43 Left Foot Radiographs Creator : John Kwon MD FINDINGS: BONES: Normal. No fracture. JOINTS: Normal. SOFT TISSUES: Normal. OTHER FINDINGS: There are some degenerative changes along the posterior calcaneus with small bony fragments in osteophytes. IMPRESSION: No acute findings 07/25/17 12:43 Left Ankle Radiographs Creator : John Kwon MD FINDINGS: BONES: Normal. No fracture. JOINTS: Normal. No osteoarthritis. Ankle mortise maintained. Talar dome intact SOFT TISSUES: Normal. IMPRESSION: Negative study Dr. Ronquillo recommended ortho consult with Dr. Osorio in ED. Dr. Osorio was consulted, came to ED, administered cortisone injection and recommends follow up as outpatient. - Lab Interpretations Lab Results: 07/25/17 10:02 07/25/17 10:02 Lab Results 07/25/17 10:02: Sodium 138, Potassium 4.3, Chloride 96 L, Carbon Dioxide 27, Anion Gap 19, BUN 18, Creatinine 0.9, Est GFR ( Amer) > 60, Est GFR (Non- Af Amer) > 60, Random Glucose 405 H* D, Uric Acid 4.9, Calcium 9.5, Total Bilirubin 0.5, AST 44 H, ALT 30, Alkaline Phosphatase 92, Total Protein 7.1, Albumin 4.1, Globulin 3.0, Albumin/Globulin Ratio 1.4 07/25/17 10:02: WBC 9.2 D, RBC 3.71, Hgb 11.2 L, Hct 33.9 L, MCV 91.4, MCH 30.2 , MCHC 33.0, RDW 14.8 H, Plt Count 346, MPV 9.6, Gran % 58.7, Lymph % (Auto) 27.8, Henry % (Auto) 8.4 H, Eos % (Auto) 4.2, Baso % (Auto) 0.9, Gran # 5.41, Lymph # 2.6, Henry # 0.8 H, Eos # 0.4, Baso # 0.08, ESR 40 H I have reviewed the lab results: Yes - RAD Interpretation Radiology Orders: 07/25/17 11:15 ANKLE LEFT 3 VIEWS ROUTINE [RAD] Stat FOOT LEFT 3 VIEWS ROUTINE [RAD] Stat - Medication Orders Current Medication Orders: Discontinued Medications Morphine Sulfate (Morphine) 4 mg IM STAT STA Stop: 07/25/17 09:24 Last Admin: 07/25/17 09:48 Dose: 4 mg Re-Assess: [facility] Pain Assessment Document 07/25/17 10:48 [facility] (Rec: 07/25/17 11:34 [id number] Pain Reassessment Is this a pain reassessment? Yes Sleep Is patient sleeping during reassessment? No Presence of Pain Presence of Pain Yes Morphine Sulfate (Morphine) 4 mg IM STAT STA Stop: 07/25/17 11:29 Last Admin: 07/25/17 11:39 Dose: 4 mg Re-Assess: [facility] Pain Assessment Document 07/25/17 12:39 [facility] (Rec: 07/25/17 14:01 [id number] Pain Reassessment Is this a pain reassessment? Yes Sleep Is patient sleeping during reassessment? No Presence of Pain Presence of Pain Yes ED OBSERVATION Discharge: Yes Date of observation admission: 07/25/17 Time of observation admission: 09:29 - Observation admission statement Patient is being placed in observation because:: pending ortho consult - Goals of Observation Goals of observation are:: evaluation by ortho - Progress Note Progress Note: 1120 Pending Ortho. Patient in no acute distress. 1320 Pending Ortho. Patient in no acute distress. [address] Osorio, see above. - Scribe Statement The provider has reviewed the documentation as recorded by the Vinnieibnelson Newsome Provider Scribe Attestation: All medical record entries made by the Scribe were at my direction and personally dictated by me. I have reviewed the chart and agree that the record accurately reflects my personal performance of the history, physical exam, medical decision making, and the department course for this patient. I have also personally directed, reviewed, and agree with the discharge instructions and disposition. Disposition/Present on Arrival - Present on Arrival Any Indicators Present on Arrival: Yes History of DVT/PE: No History of Uncontrolled Diabetes: Yes Urinary Catheter: No History of Decub. Ulcer: No History Surgical Site Infection Following: None - Disposition Have Diagnosis and Disposition been Completed?: Yes Diagnosis: Foot pain Disposition: HOME/ ROUTINE Disposition Time: 09:29 Patient Plan: Discharge Condition: STABLE Referrals: John Metzger DO [Staff Provider] - Follow up with primary Forms: [employer] ([place])
[2017-07-25 10:29] LABS: GLUCOSE,RANDOM 405 mg/dL (70-110)
--- NOTE | 2017-07-25 12:39 | RAD ---
PROCEDURE: Left Foot Radiographs. HISTORY: foot pain COMPARISON: None. FINDINGS: BONES: Normal. No fracture. JOINTS: Normal. SOFT TISSUES: Normal. OTHER FINDINGS: There are some degenerative changes along the posterior calcaneus with small bony fragments in osteophytes. IMPRESSION: No acute findings
--- NOTE | 2017-07-25 12:40 | RAD ---
PROCEDURE: Left Ankle Radiographs. HISTORY: ankle pain COMPARISON: None FINDINGS: BONES: Normal. No fracture. JOINTS: Normal. No osteoarthritis. Ankle mortise maintained. Talar dome intact SOFT TISSUES: Normal. OTHER FINDINGS: None. IMPRESSION: Negative study
[2017-07-25 13:58] VITALS: BP 146/76; PULSE 77; TEMP 98; O2SAT 95
--- NOTE | 2017-07-25 22:47 | CON ---
ORTHOPEDIC CONSULT AND PROCEDURE REPORT The patient is a 77-year-old female, complaining of intractable left heel pain for 2-1/2 weeks while at home. She does not get up as much, came to the ER for pain from for treatment. X-rays are within normal limits of the left foot and ankle. She had been seen by pan reclaim processor last night at home for multiple infections of the sensory nerve of the left ankle. The only thing that was not done is, she does have pain on the heel area where the plantar fascia with acute tenderness when I push on the plantar surface of the left heel. She does not wear shoes at home. There is no evidence of puncture wound, no infection. She is diabetic with neuropathy so I took the opportunity to inject her left heel with Depo-Medrol, Marcaine to lateral approach and it looks like a classic case of plantar fasciitis hopefully this will help with Depo-Medrol and Marcaine and I told her get a good orthopedic shoe, but she states she stays at home and does not walk that much, I will see what happens with the x-rays when interpreted is within normal limits. I will follow her as an outpatient and she is not going to be admitted, she wants to go home. FINAL DIAGNOSES: Plantar fasciitis and diabetic neuropathy of the left heel. We injected with Depo-Medrol and Marcaine to the left heel. John Metzger DO
== END 2017-07-25 15:00 | disposition home or self-care (01) ==
LOC: ED 08:26 → EROBSV 09:29 → ED 14:00
PROVIDERS: ADMIT Student in an Organized Health Care Education/Training Program; ATTEND Student in an Organized Health Care Education/Training Program
DX: M79.672 Pain in left foot (principal); E11.40 Type 2 diabetes mellitus with diabetic neuropathy, unspecified; M10.9 Gout, unspecified; I10 Essential (primary) hypertension; E05.90 Thyrotoxicosis, unspecified without thyrotoxic crisis or storm
CPT/HCPCS: 73610; 73630; 80053; 84550; 85025; 85651; 86140; 96372; 99283; G0378; J2270

== ENCOUNTER 2017-09-29 11:48 | Emergency (ER) | payer MEDICARE ==
[2017-09-29 11:53] VITALS: BMI 31.8
[2017-09-29 12:08] VITALS: TEMP 98.3
[2017-09-29] MEDS ORDERED: Albuterol-Ipratrop 3 mg / 0.5 (3 ml) UD IH STA (12:25)
--- NOTE | 2017-09-29 12:31 | ED PDOC ---
Arrival/HPI - General Historian: Patient, Family - History of Present Illness Time/Duration: < week Symptom Onset: Gradual Symptom Course: Unchanged Quality: Other (unable to get full breath) Severity Level: Moderate Context: Exertion <Magdiel Alcaraz - Last Filed: 09/29/17 12:53> <Jonas Peña DO - Last Filed: 09/29/17 19:09> - General Chief Complaint: Shortness Of Breath Time Seen by Provider: 09/29/17 12:02 - History of Present Illness Narrative History of Present Illness (Text): 09/29/17 12:26 This is a 77 yo female with past medical hx of COPD, CHF, CAD, IDDM, presenting with shortness of breath x 3 days. Patient says she was gradually feeling more and more dyspneic and went to her PMD Dr. Lares on Friday. Dr. Lares prescribed her nebulizer treatment. She used nebulizer q 6 hrs for the past couple of days. Did not feel relief. Denies prior intubations. Denies frequent exacerbations of COPD and CHF. Reports some substernal chest pain which she says has been on and off for a long time owing to her cabg surgery. Denies fevers, chills, cough, recent travel, sick contacts. Pt was still feeling short of breath so decided to come to ER today. PMH: COPD, CHF, IDDM, CAD PSH: cholecystectomy, stent, CABG Allergies: PCN, plavix, ambien FH: Non contributory Social : denies smoking, drinking, drug use. (Magdiel Alcaraz) Past Medical History - Provider Review Nursing Documentation Reviewed: Yes - Travel History Have you recently traveled outside [place] w/in the past 3 mons?: No - Infectious Disease Hx of Infectious Diseases: None - Tetanus Immunization Tetanus Immunization: Unknown - Reproductive Menopause: Yes - Past Medical History Past Medical History: No Previous - Cardiac Hx Cardiac Disorders: Yes Hx Congestive Heart Failure: Yes Hx Hypertension: Yes - Pulmonary Hx Respiratory Disorders: Yes - Neurological Hx Neurological Disorder: Yes Hx Transient Ischemic Attacks (TIA): Yes - HEENT Hx HEENT Disorder: No - Renal Hx Renal Disorder: No - Endocrine/Metabolic Hx Endocrine Disorders: Yes Hx Diabetes Mellitus Type 2: Yes Hx Hyperthyroidism: Yes - Hematological/Oncological Hx Blood Disorders: No - Integumentary Hx Dermatological Disorder: Yes Hx Basal Cell Carcinoma: Yes (ca) Hx Squamous Cell Carcinoma: Yes (ca) - Musculoskeletal/Rheumatological Hx Musculoskeletal Disorders: Yes Hx Arthritis: Yes Hx Falls: Yes Hx Unsteady Gait: Yes (cane) - Gastrointestinal Hx Gastrointestinal Disorders: Yes Hx Gall Bladder Disease: Yes Hx Gastrointestinal Ulcer: Yes - Genitourinary/Gynecological Hx Genitourinary Disorders: No - Psychiatric Hx Psychophysiologic Disorder: No Hx Substance Use: No - Surgical History Hx Amputation: Yes (partial BL index finger) Hx Cardiac Catheterization: Yes Hx Hysterectomy: Yes - Anesthesia Hx Anesthesia: Yes Hx Anesthesia Reactions: No - Suicidal Assessment Feels Threatened In Home Enviroment: No <Magdiel Alcaraz - Last Filed: 09/29/17 12:53> Family/Social History - Physician Review Nursing Documentation Reviewed: Yes Family/Social History: No Known Family HX Smoking Status: Never Smoked Hx Alcohol Use: No Hx Substance Use: No Hx Substance Use Treatment: No <Magdiel Alcaraz - Last Filed: 09/29/17 12:53> Allergies/Home Meds <Magdiel Alcaraz - Last Filed: 09/29/17 12:53> <Jonas Peña DO - Last Filed: 09/29/17 19:09> Allergies/Adverse Reactions: Allergies clopidogrel bisulfate [From Plavix] Allergy (Verified 09/29/17 11:53) RASH Penicillins Allergy (Verified 09/29/17 11:53) RASH zolpidem tartrate [From Ambien] Allergy (Verified 09/29/17 11:53) RASH Home Medications: Home Meds Medication Instructions Recorded Confirmed [id number] CD [Cardizem CD] 240 mg PO DAILY 10/09/13 09/29/17 Insulin Detemir [Levemir] 22 unit SC HS 02/04/14 09/29/17 Allopurinol [Zyloprim] 300 mg PO DAILY 03/31/16 09/29/17 Furosemide [Lasix] 40 mg PO BID 03/31/16 09/29/17 Metoprolol Tartrate [Lopressor] 50 mg PO DAILY 03/31/16 09/29/17 Simvastatin [Zocor] 20 mg PO DAILY 03/31/16 09/29/17 metFORMIN [glucOPHAGE] 500 mg PO BID 03/31/16 09/29/17 Pantoprazole [Protonix EC Tab] 1 tab PO DAILY 04/09/17 09/29/17 Gabapentin [Neurontin] 300 mg PO TID 07/25/17 09/29/17 Ticagrelor [Brilinta] 90 mg PO BID 07/25/17 09/29/17 Albuterol 0.042% [Albuterol 0.042% 3 ml IH PRN PRN 09/29/17 09/29/17 Inhal Belkis (1.25mg/3ml) UD] Review of Systems - Review of Systems Constitutional: Fatigue. absent: Fevers Eyes: absent: Vision Changes ENT: absent: Hearing Changes Respiratory: SOB. absent: Cough, Wheezing Cardiovascular: Chest Pain (chronic ). absent: Palpitations Gastrointestinal: absent: Abdominal Pain Genitourinary Female: absent: Dysuria, Frequency Musculoskeletal: absent: Arthralgias, Back Pain Skin: absent: Rash, Pruritis Neurological: absent: Headache, Dizziness Hemo/Lymphatic: absent: Adenopathy, Easy Bleeding Psychiatric: absent: Anxiety, Depression <Magdiel Alcaraz - Last Filed: 09/29/17 12:53> Physical Exam Vital Signs Reviewed: Yes - Systems Exam Head: Present: Atraumatic, Normocephalic Pupils: Present: PERRL Extroacular Muscles: Present: EOMI Conjunctiva: Present: Normal Mouth: Present: Moist Mucous Membranes Neck: Present: Normal Range of Motion. No: JVD Respiratory/Chest: Present: Rales (faint crackles bases ). No: Respiratory Distress Cardiovascular: Present: Regular Rate and Rhythm, Normal S1, S2 Abdomen: Present: Normal Bowel Sounds. No: Tenderness, Distention Back: Present: Normal Inspection. No: CVA Tenderness Upper Extremity: Present: Normal Inspection. No: Cyanosis, Edema Lower Extremity: Present: Normal Inspection. No: Edema, CALF TENDERNESS Neurological: Present: GCS=15, CN II-XII Intact, Speech Normal Skin: Present: Warm, Dry Psychiatric: Present: Alert, Oriented x 3, Normal Insight, Normal Concentration <Magdiel Alcaraz - Last Filed: 09/29/17 12:53> Vital Signs Temp Pulse Resp BP Pulse Ox 09/29/17 13:48 70 18 168/92 H 95 09/29/17 12:15 16 09/29/17 12:07 98.3 F 72 20 120/64 100 - Lab Interpretations Lab Results: 09/29/17 12:07 09/29/17 13:32 Lab Results 09/29/17 13:32: Sodium 138, Potassium 3.4 L, Chloride 99, Carbon Dioxide 25, Anion Gap 17, BUN 17, Creatinine 0.9, Est GFR ( Amer) > 60, Est GFR (Non- Af Amer) > 60, Random Glucose 214 H, Calcium 9.9, Magnesium 1.4 L, Total Bilirubin 0.7, AST 47 H, ALT 24, Alkaline Phosphatase 89, Lactate Dehydrogenase 578, Total Creatine Kinase 61, Troponin I 0.03 D, NT-Pro-B Natriuret Pep 1100 H , Total Protein 7.2, Albumin 4.1, Globulin 3.1, Albumin/Globulin Ratio 1.3 09/29/17 12:07: WBC 10.0, RBC 3.44 L, Hgb 10.7 L, Hct 31.9 L, MCV 92.7, MCH 31.1 , MCHC 33.5, RDW 15.5 H, Plt Count 332, MPV 10.0, Gran % 67.0, Lymph % (Auto) 23.4, Dubois % (Auto) 6.0, Eos % (Auto) 2.8, Baso % (Auto) 0.8, Gran # 6.68 H, Lymph # 2.3, Dubois # 0.6, Eos # 0.3, Baso # 0.08 - RAD Interpretation Radiology Orders: 09/29/17 12:07 CHEST PORTABLE [RAD] Stat - Medication Orders Current Medication Orders: Discontinued Medications Acetaminophen (Tylenol 325mg Tab) 650 mg PO STAT STA Stop: 09/29/17 13:22 Last Admin: 09/29/17 13:47 Dose: 650 mg [facility] Pain/Vitals Document 09/29/17 13:47 HI (Rec: 09/29/17 13:47 [place] [id number]) Pain Reassessment Is This A Pain ReAssessment? No Sleep Is patient sleeping during reassessment? 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 SUNSHINE has examined the patient and agrees with the treatment plan. <Jonas Peña DO - Last Filed: 09/29/17 19:09> Disposition/Present on Arrival - Present on Arrival History of DVT/PE: No History of Uncontrolled Diabetes: Yes Urinary Catheter: No History of Decub. Ulcer: No History Surgical Site Infection Following: None <Magdiel Alcaraz - Last Filed: 09/29/17 12:53> - Present on Arrival Any Indicators Present on Arrival: No History of Uncontrolled Diabetes: Yes - Disposition Have Diagnosis and Disposition been Completed?: Yes Disposition Time: 14:30 <Jonas Peña DO - Last Filed: 09/29/17 19:09> - Disposition Diagnosis: CHF (congestive heart failure), Anxiety Disposition: HOME/ ROUTINE Condition: GOOD Discharge Instructions (ExitCare): Heart Failure (ED) Additional Instructions: Thank you for letting us take care of you today. The emergency medical care you received today was directed at your acute symptoms. If you were prescribed any medication, please fill it and take as directed. It may take several days for your symptoms to resolve. Return to the Emergency Department if your symptoms worsen, do not improve, or if you have any other problems. Please contact your doctor or call one of the physicians/clinics you have been referred to that are listed on the Patient Visit Information form that is included in your discharge packet. Bring any paperwork you were given at discharge with you along with any medications you are taking to your follow up visit. Our treatment cannot replace ongoing medical care by a primary care provider (PCP) outside of the emergency department. Thank you for allowing the [facility] team to be part of your care today. PLEASE CALL YOUR PRIMARY CARE DOCTOR TOMORROW TO MAKE AN APPOINTMENT FOR FOLLOW UP. Prescriptions: ALPRAZolam [Xanax] 0.25 mg PO Q8 PRN #5 tab PRN Reason: Anxiety Referrals: Reese Ronquillo MD [Primary Care Provider] - Follow up with primary Forms: [employer] (Khmer)
[2017-09-29 12:39] LABS: BASO # 0.08 K/mm3 (0.0-2.0); BASO % 0.8 % (0.0-3.0); EOS # 0.3 (0.0-0.7); EOS % 2.8 % (1.5-5.0); GRAN # 6.68 (1.4-6.5); HEMATOCRIT 31.9 % (36.0-48.0); LYMPH # 2.3 (1.2-3.4); LYMPH % 23.4 % (22.0-35.0); MEAN CELL VOLUME 92.7 fl (80.0-105.0); MEAN CORPUSCULAR HEMOGLOBIN 31.1 pg (25.0-35.0); MEAN CORPUSCULAR HGB CONC 33.5 g/dl (31.0-37.0); MONO # 0.6 (0.1-0.6); RED CELL DISTRIBUTION WIDTH 15.5 % (11.5-14.5)
--- NOTE | 2017-09-29 13:30 | RAD ---
HISTORY: SOB COMPARISON: Portable chest 04/09/2017 FINDINGS: Sternotomy wires again appreciated. LUNGS: No active pulmonary disease. PLEURA: No significant pleural effusion identified, no pneumothorax apparent. CARDIOVASCULAR: Mild cardiomediastinal prominence appears stable. No pulmonary vascular derangement. OSSEOUS STRUCTURES: No significant abnormalities. VISUALIZED UPPER ABDOMEN: Normal. OTHER FINDINGS: None. IMPRESSION: Stable cardiac silhouette again evident. No acute infiltrate, pleural effusion or pulmonary vascular derangement identified.
[2017-09-29 13:44] LABS: ALB/GLOB RATIO 1.3 (1.1-1.8); ALKALINE PHOSPHATASE 89 U/L (38-126); ALT/SGPT 24 U/L (7-56); AST/SGOT 47 U/L (14-36); BILIRUBIN,TOTAL 0.7 mg/dL (0.2-1.3); BLOOD UREA NITROGEN 17 mg/dL (7-21); CALCIUM 9.9 mg/dL (8.4-10.5); CARBON DIOXIDE 25 mmol/L (21-33); CHLORIDE 99 mmol/L (98-107); GFR AFRICAN-AMERICAN > 60; GLUCOSE,RANDOM 214 mg/dL (70-110); MAGNESIUM 1.4 mg/dL (1.7-2.2); POTASSIUM 3.4 mmol/L (3.6-5.0); SODIUM 138 mmol/L (132-148); TOTAL PROTEIN 7.2 g/dL (5.8-8.3)
[2017-09-29 13:48] VITALS: BP 168/92; PULSE 70; RESP 18; O2SAT 95
[2017-09-29 13:55] LABS: TROPONIN I 0.03 ng/mL
--- NOTE | 2017-09-30 09:56 | CARD ---
APPROVED REPORT EKG Measurement Heart [id number] <Conclusion> Sinus rhythm with premature supraventricular complexes Minimal voltage criteria for LVH, may be normal variant ST & T wave abnormality, consider lateral ischemia Baseline artifact Probably no change
== END 2017-09-29 14:30 | disposition home or self-care (01) ==
LOC: ED 11:48
DX: I50.9 Heart failure, unspecified (principal); F41.9 Anxiety disorder, unspecified; I10 Essential (primary) hypertension; E11.9 Type 2 diabetes mellitus without complications; Z79.4 Long term (current) use of insulin

== ENCOUNTER 2019-02-27 07:44 | Emergency (ER) | payer MEDICARE ==
[2019-02-27 07:50] VITALS: BMI 32.3
[2019-02-27 08:00] VITALS: RESP 18
[2019-02-27] MEDS ORDERED: Lidocaine 5% Patch TD STA (08:12)
--- NOTE | 2019-02-27 08:13 | ED PDOC ---
Arrival/HPI - General Chief Complaint: Trauma Time Seen by Provider: 02/27/19 07:52 Historian: Patient - History of Present Illness Narrative History of Present Illness (Text): 02/27/19 08:10 79 year old female, whose past medical history includes arthritis, COPD, CHF, CAD, IDDM, presents to the emergency department sent in by Dr. Wahl complaining of left shoulder pain s/p slip and fall trying to get out of the shower 1 week ago. Patient also reports right lower back pain that began last night and reports she is unable to ambulate due to the pain. Patient took 2 percocet prior to arrival. She denies any head injury or LOC. Patient denies any fever, chills, chest pain, shortness of breath, nausea, vomiting, diarrhea, urinary symptoms, hip pain, neck pain, headache, dizziness, numbness/tingling, or any other complaints. chief complaint is acute low back pain since yesterday, no trauma, no fever, no radicular, no neuro deficits. PMD: Dr. Wahl 02/27/19 16:32 Time/Duration: 1 week Symptom Onset: Gradual Symptom Course: Unchanged Activities at Onset: Light Context: Slipped Past Medical History - Provider Review Nursing Documentation Reviewed: Yes - Infectious Disease Hx of Infectious Diseases: None - Tetanus Immunization Tetanus Immunization: Unknown - Past Medical History Past Medical History: No Previous - Cardiac Hx Cardiac Disorders: Yes Hx Congestive Heart Failure: Yes Hx Hypertension: Yes - Pulmonary Hx Respiratory Disorders: Yes - Neurological Hx Neurological Disorder: Yes Hx Transient Ischemic Attacks (TIA): Yes - HEENT Hx HEENT Disorder: No - Renal Hx Renal Disorder: No - Endocrine/Metabolic Hx Endocrine Disorders: Yes Hx Diabetes Mellitus Type 2: Yes Hx Hyperthyroidism: Yes - Hematological/Oncological Hx Blood Disorders: No - Integumentary Hx Dermatological Disorder: Yes Hx Basal Cell Carcinoma: Yes (ca) Hx Squamous Cell Carcinoma: Yes (ca) - Musculoskeletal/Rheumatological Hx Musculoskeletal Disorders: Yes Hx Arthritis: Yes Hx Falls: Yes Hx Unsteady Gait: Yes (cane) - Gastrointestinal Hx Gastrointestinal Disorders: Yes Hx Gall Bladder Disease: Yes Hx Gastrointestinal Ulcer: Yes - Genitourinary/Gynecological Hx Genitourinary Disorders: No - Psychiatric Hx Psychophysiologic Disorder: No Hx Substance Use: No - Surgical History Hx Amputation: Yes (partial BL index finger) Hx Cardiac Catheterization: Yes Hx Hysterectomy: Yes - Anesthesia Hx Anesthesia: Yes Hx Anesthesia Reactions: No Hx Malignant Hyperthermia: No - Suicidal Assessment Feels Threatened In Home Enviroment: No Family/Social History - Physician Review Nursing Documentation Reviewed: Yes Family/Social History: No Known Family HX Smoking Status: Never Smoked Hx Alcohol Use: No Hx Substance Use: No Hx Substance Use Treatment: No Allergies/Home Meds Allergies/Adverse Reactions: Allergies clopidogrel bisulfate [From Plavix] Allergy (Verified 02/27/19 07:59) RASH Penicillins Allergy (Verified 02/27/19 07:59) RASH zolpidem tartrate [From Ambien] Allergy (Verified 02/27/19 07:59) RASH Home Medications: Home Meds Medication Instructions Recorded Confirmed Allopurinol [Zyloprim] 300 mg PO DAILY 03/31/16 02/27/19 Furosemide [Lasix] 40 mg PO BID 03/31/16 02/27/19 Metoprolol Tartrate [Lopressor] 50 mg PO DAILY 03/31/16 02/27/19 Simvastatin [Zocor] 20 mg PO DAILY 03/31/16 02/27/19 metFORMIN [glucOPHAGE] 500 mg PO BID 03/31/16 02/27/19 Pantoprazole [Protonix EC Tab] 1 tab PO DAILY 04/09/17 02/27/19 Gabapentin [Neurontin] 300 mg PO TID 07/25/17 02/27/19 Ticagrelor [Brilinta] 90 mg PO BID 07/25/17 02/27/19 Diltiazem HCl [Cartia Xt] 1 cap PO DAILY 02/27/19 02/27/19 Insulin Detemir [Levemir] 22 units SUBCUT DAILY 02/27/19 02/27/19 Review of Systems - Physician Review All systems were reviewed & negative as marked: Yes - Review of Systems Constitutional: absent: Fevers, Other (chills) Respiratory: absent: SOB Cardiovascular: absent: Chest Pain Gastrointestinal: absent: Abdominal Pain, Diarrhea, Nausea, Vomiting Genitourinary Female: absent: Dysuria, Frequency, Hematuria Musculoskeletal: Back Pain, Other ((-)left shoulder pain (-) hip pain). absent: Neck Pain Neurological: absent: Headache, Dizziness, Other (numbness/tingling) Physical Exam - Physical Exam Narrative Physical Exam (Text): Gen: VS reviewed, alert, well developed, well nourished, nontoxic, mild distress. ENT: normal pharynx. Eye: EOMI, PERRL. Neck: no JVD, supple, no adenopathy. CV: regular rate, regular rhythm, no rubs, no murmur, no gallops, S1, S2, pulses equal and strong. Pulm: no distress, clear to auscultation, no wheeze, no rhonchi, breath sounds equal, no rales. Abd: soft, nontender, no guarding, no rebound, no rigidity, normal bowel sounds. Ext: Tenderness to the lateral aspect of the left shoulder. Limited active ROM of the shoulder secondary to pain. No clavicle or scapula tenderness. Questionable pain of the left lateral hip. No tenderness on the right hip. Limited flexion to the hip secondary to pain. no edema. Skin: good color, no rash, no cyanosis. Psych: responds appropriately to questions, normal affect. Neuro: oriented x 3, CN2-12 intact grossly, motor intact, sensation intact. Vital Signs Reviewed: Yes Vital Signs Temp Pulse Resp BP Pulse Ox 02/27/19 07:53 98.2 F 89 18 179/72 H 94 L Temperature: Afebrile Blood Pressure: Hypertensive Pulse: Regular Respiratory Rate: Normal Medical Decision Making ED Course and Treatment: 02/27/19 08:10 Impression: 79 year old female sent in by Dr. Rahman for evaluation of left shoulder pain s/p slip and fall trying to get out of the shower 1 week ago associated with right-sided back pain that began last night. Plan: -- Lidoderm -- Sling -- Hip right x-ray -- LS Spine x-ray -- Left shoulder x-ray -- Reassess and disposition Prior Visits: Notes and results from previous visits were reviewed. Progress Notes: 02/27/19 08:43 Dr. Reece is at patient's bedside evaluating patient. 02/27/19 09:55 Dr. Bahena is at patient's bedside evaluating patient. 02/27/19 10:[address] reece and he has injected the left shoulder for comfort. dr. wahl recommends discharge home since there there is no evidence of fracture at this time. i have separately offered admission to the hospital to the patient considering that she is still in pain despite multiple interventions for pain. patient understands and respectfully declined admission and states she would rather be home in her recliner. i have discussed this with the patient's daughter and she states the patient has strong support at home and it ok to discharge home. - Scribe Statement The provider has reviewed the documentation as recorded by the Scribe Iram Corey Provider Scribe Attestation: All medical record entries made by the Scribe were at my direction and personally dictated by me. I have reviewed the chart and agree that the record accurately reflects my personal performance of the history, physical exam, medical decision making, and the department course for this patient. I have also personally directed, reviewed, and agree with the discharge instructions and disposition. Disposition/Present on Arrival - Present on Arrival Any Indicators Present on Arrival: No History of DVT/PE: No History of Uncontrolled Diabetes: Yes Urinary Catheter: No History of Decub. Ulcer: No History Surgical Site Infection Following: None - Disposition Have Diagnosis and Disposition been Completed?: Yes Diagnosis: Arthritis of shoulder region, left, Low back pain, Arthritis Disposition: HOME/ ROUTINE Disposition Time: 10:20 Patient Plan: Discharge Condition: STABLE Discharge Instructions (ExitCare): Low Back Pain in Adults, Arthrocentesis, How to Use a Shoulder Sling Additional Instructions: the left shoulder was injected with steroid (for inflammation) and lidocaine (pain) by dr. reece. please see dr. reece in the office for follow up-call to make an appointment. return for any new or worsening symptoms. Prescriptions: Cyclobenzaprine [Flexeril] 5 mg PO TID #15 tab Referrals: Reese Wahl MD [Primary Care Provider] - Follow up with primary Forms: [employer] (Mosotho)
[2019-02-27] MEDS ORDERED: MethylPREDNISolone Depo 80 mg/ml (5 ml) Inj INJ ONE (09:39)
[2019-02-27] MEDS ORDERED: Bupivacaine 0.5% Inj(30mL) INJ STA (09:39)
[2019-02-27 10:19] VITALS: BP 160/98; PULSE 75; TEMP 98; O2SAT 98
--- NOTE | 2019-02-27 11:38 | RAD ---
Date of service: 02/27/2019 PROCEDURE: Radiographs of the Left Shoulder HISTORY: injury, pain COMPARISON: No prior. TECHNIQUE: 3 views obtained. FINDINGS: BONES: Normal. No fracture. JOINTS: Degenerative changes are seen in the acromioclavicular joint SOFT TISSUES: Normal. OTHER FINDINGS: None. IMPRESSION: No acute fracture
--- NOTE | 2019-02-27 11:40 | RAD ---
PROCEDURE: Right Hip and pelvis radiographs. HISTORY: possible pain COMPARISON: None. TECHNIQUE: Three views obtained. FINDINGS: BONES: Normal. No fracture. JOINTS: Normal. SOFT TISSUES: Normal. OTHER FINDINGS: Aortic and iliac calcifications IMPRESSION: Normal radiographs of right hip.
--- NOTE | 2019-02-27 11:43 | RAD ---
Date of service: 02/27/2019 PROCEDURE: Radiographs of the Lumbar Spine. HISTORY: radicular low back pain COMPARISON: No prior. TECHNIQUE: Four views obtained. FINDINGS: BONES: Normal alignment. No listhesis. No fracture. DISC SPACES: Mild disc degeneration and mild facet arthropathy OTHER FINDINGS: Aortic calcification IMPRESSION: No acute findings
--- NOTE | 2019-02-27 15:02 | CON ---
DATE: 02/27/2019 ORTHOPEDIC REPORT. HISTORY OF PRESENT ILLNESS: The patient is a 79-year-old female came into the ER with pain of the right hip, left shoulder, and low back, when she fell at home. She has tenderness to the right hip region greater trochanter with ability to do a straight leg raising and no increased pain with rotation of the right hip, so I do not think it is a fracture, but we will get x-ray to refer mild arthritis or bursitis. She has left shoulder pain tenderness and swelling at the glenohumeral joint, subacromial joint and AC joint, so we will order x-rays of that, also in the low back, because there is also some pain in the back. Three x-rays are done and shows osteoarthritis of lumbosacral spine, no fractures. She has mild osteoarthritis of the right hip not surgical and the left shoulder has tremendous osteoarthritis of acromioclavicular joint and rotator cuff tear with the high riding humerus which indicates a RC tear with pain. She does not want any surgical intervention. She cannot come to office because she cannot do stairs because of bad knees, also we injected the left shoulder with Depo-Medrol and Marcaine including AC joint and glenohumeral joint. Hopefully this will give her some relief. I told her not to use a sling as this will make it stiffer and weaker, but she should put a pillow under the arm to abduct the arm and externally rotate it. 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 We will see the patient p.r.n. as needed. Hopefully the cortisone shot will help her left shoulder even temporarily for the holidays. John Metzger DO [id number]
== END 2019-02-27 10:32 | disposition home or self-care (01) ==
LOC: ED 07:44
DX: M54.5 Low back pain (principal); M19.012 Primary osteoarthritis, left shoulder; E11.9 Type 2 diabetes mellitus without complications; I25.10 Atherosclerotic heart disease of native coronary artery without angina pectoris; I50.9 Heart failure, unspecified; Z79.4 Long term (current) use of insulin
CPT/HCPCS: 72110; 73030; 73503; 96372; 99284; J1040; J1885